=== PATIENT | male | born 1990 | race Caucasian/White ===

== ENCOUNTER → 2017-11-21 09:18 | Outpatient (CLI) | payer OTHER, MEDICAID, SELFPAY ==
[2017-11-21 11:15] LABS: Alanine Aminotransferase 221 IU/L (21-72); Albumin 4.5 g/dL (3.5-5.0); Albumin Globulin Ratio 1.4 (1.0-2.8); Alkaline Phosphatase 53 U/L (38-126); Aspartate Aminotransferase 133 IU/L (17-59); Bilirubin Total 0.5 mg/dL (0.2-1.3); Bilirubin Unconjugated 0.2 mg/dL (0.0-1.1); Cholesterol 175 mg/dL (140-199); Globulin 3.2 g/dL (1.7-4.1); HDL Cholesterol 44 mg/dL (40-60); HEMOLYSIS < 15 (0-50); LDL Cholesterol Calculated 93 mg/dL (<100); Total Protein 7.7 g/dL (6.3-8.2); Triglycerides 188 mg/dL (35-150)
== END ==
PROVIDERS: PCP Physician Assistant; Visit Provider Physician Assistant
DX: E78.1 Pure hyperglyceridemia (principal); F10.20 Alcohol dependence, uncomplicated; F10.929 Alcohol use, unspecified with intoxication, unspecified
CPT/HCPCS: 36415; 80061; 80076

== ENCOUNTER → 2018-06-25 09:55 | Outpatient (CLI) | payer OTHER, MEDICAID, SELFPAY ==
[2018-06-25 13:13] LABS: Alanine Aminotransferase 156 IU/L (21-72); Albumin 4.9 g/dL (3.5-5.0); Albumin Globulin Ratio 1.4 (1.0-2.8); Alkaline Phosphatase 55 U/L (38-126); Aspartate Aminotransferase 67 IU/L (17-59); BUN Creatinine Ratio 15.6 (6-22); Bilirubin Total 0.7 mg/dL (0.2-1.3); Blood Urea Nitrogen 14 mg/dL (9-20); Calcium 9.8 mg/dL (8.4-10.2); Carbon Dioxide 29 mmol/L (22-32); Chloride 99 mmol/L (98-107); Cholesterol 174 mg/dL (140-199); Estimated Glomerular Filt Rate > 60.0 mL/min (>60); Globulin 3.6 g/dL (1.7-4.1); Glucose 85 mg/dL (70-100); HDL Cholesterol 38 mg/dL (40-60); HEMOLYSIS < 15 (0-50); LDL Cholesterol Calculated 97 mg/dL (<100); Potassium 4.3 mmol/L (3.4-5.1); Sodium 139 mmol/L (137-145); Total Protein 8.5 g/dL (6.3-8.2); Triglycerides 195 mg/dL (35-150)
== END ==
PROVIDERS: PCP Physician Assistant; Visit Provider Physician Assistant
DX: E78.5 Hyperlipidemia, unspecified (principal); I10 Essential (primary) hypertension; R74.8 Abnormal levels of other serum enzymes
CPT/HCPCS: 36415; 80053; 80061

== ENCOUNTER → 2018-12-02 15:06 | Outpatient (CLI) | payer OTHER, MEDICAID, SELFPAY ==
[2018-12-02 17:25] LABS: Alanine Aminotransferase 96 IU/L (21-72); Albumin 4.9 g/dL (3.5-5.0); Albumin Globulin Ratio 1.3 (1.0-2.8); Alkaline Phosphatase 65 U/L (38-126); Aspartate Aminotransferase 53 IU/L (17-59); BUN Creatinine Ratio 17.8 (6-22); Bilirubin Total 0.8 mg/dL (0.2-1.3); Blood Urea Nitrogen 16 mg/dL (9-20); Calcium 9.7 mg/dL (8.4-10.2); Carbon Dioxide 26 mmol/L (22-32); Chloride 101 mmol/L (98-107); Estimated Glomerular Filt Rate > 60.0 mL/min (>60); Globulin 3.8 g/dL (1.7-4.1); Glucose 79 mg/dL (70-100); HEMOLYSIS < 15 (0-50); Potassium 4.3 mmol/L (3.4-5.1); Sodium 140 mmol/L (137-145); Total Protein 8.7 g/dL (6.3-8.2)
[2018-12-02 17:33] LABS: Microalbumi Creatinin Ratio Ur 6.4 ug/mg CR (<30)
== END ==
PROVIDERS: PCP Physician Assistant; Visit Provider Physician Assistant
DX: I10 Essential (primary) hypertension (principal); R74.8 Abnormal levels of other serum enzymes
CPT/HCPCS: 36415; 80053; 82043; 82570

== ENCOUNTER → 2019-03-03 15:32 | Outpatient (CLI) | payer OTHER, MEDICAID, SELFPAY ==
--- NOTE | 2019-03-03 15:34 | DI.RAD.S_ITS ---
PROCEDURE: XR SACRUM COCCYX MIN 2V INDICATIONS: sacral pain - bilateral morning stiffness TECHNIQUE: 3 views of the sacrum and coccyx acquired. COMPARISON: None. FINDINGS: Bones: No fractures or dislocations. No suspicious bony lesions. Soft tissues: Visualized bowel gas pattern is normal. No suspicious soft tissue densities. IMPRESSION: Negative examination as above Dictated by: Bruce Pepe M.D. on 03/03/2019 at 17:19 Approved by: Bruce Pepe M.D. on 03/03/2019 at 17:21
--- NOTE | 2019-03-03 15:34 | DI.RAD.S_ITS ---
PROCEDURE: XR LUMBAR SPINE 2-3V INDICATIONS: Low back pain TECHNIQUE: 3 views of the lumbar spine were acquired. COMPARISON: None. FINDINGS: Bones: No fracture or focal osseous destruction. Straightening of the normal lordotic curvature. No definite disc space narrowing. Mild lower lumbar facet disease. Soft tissues: Overlying bowel gas pattern is normal. No suspicious soft tissue calcifications. IMPRESSION: Mild lower lumbar facet disease Dictated by: Bruce Pepe M.D. on 03/03/2019 at 17:18 Approved by: Bruce Pepe M.D. on 03/03/2019 at 17:19
== END ==
PROVIDERS: PCP Physician Assistant; Visit Provider Physician Assistant
DX: M54.5 Low back pain (principal); M53.3 Sacrococcygeal disorders, not elsewhere classified
CPT/HCPCS: 72100; 72220

== ENCOUNTER → 2019-03-12 11:43 | Outpatient (CLI) | payer OTHER, MEDICAID, SELFPAY ==
[2019-03-12 13:41] LABS: Alanine Aminotransferase 82 IU/L (<50); Albumin 4.8 g/dL (3.5-5.0); Albumin Globulin Ratio 1.5 (1.0-2.8); Alkaline Phosphatase 61 U/L (38-126); Aspartate Aminotransferase 43 IU/L (17-59); Bilirubin Total 0.9 mg/dL (0.2-1.3); Bilirubin Unconjugated 0.7 mg/dL (0.0-1.1); Globulin 3.3 g/dL (1.7-4.1); HEMOLYSIS < 15 (0-50); Total Protein 8.1 g/dL (6.3-8.2)
== END ==
PROVIDERS: PCP Physician Assistant; Visit Provider Physician Assistant
DX: R74.8 Abnormal levels of other serum enzymes (principal); R77.8 Other specified abnormalities of plasma proteins
CPT/HCPCS: 36415; 80076

== ENCOUNTER → 2020-05-11 10:26 | Outpatient (CLI) | payer OTHER, MEDICAID, SELFPAY ==
--- NOTE | 2020-05-11 10:29 | DI.RAD.S_ITS ---
PROCEDURE: XR RIBS LT MIN 2V W CXR1V INDICATIONS: left rib pain TECHNIQUE: 2 views of the left ribs were acquired, along with a single view chest. COMPARISON: None. FINDINGS: Surgical changes and devices: None. Bones and chest wall: No fractures or dislocations. No suspicious bony lesions. Overlying soft tissues appear unremarkable. Lungs and pleura: No pleural effusions or pneumothorax. Lungs appear clear. Mediastinum: Mediastinal contours appear normal. Heart size is normal. IMPRESSION: No displaced rib fracture. No acute cardiopulmonary disease process. Dictated by: Tia Jacobsen MD, PhD on 05/11/2020 at 17:11 Approved by: Tia Jacobsen MD, PhD on 05/11/2020 at 17:12
[2020-05-11 12:26] LABS: Alanine Aminotransferase 46 IU/L (<50); Albumin 4.9 g/dL (3.5-5.0); Albumin Globulin Ratio 1.3 (1.0-2.8); Alkaline Phosphatase 54 U/L (38-126); Aspartate Aminotransferase 34 IU/L (17-59); BUN Creatinine Ratio 15.1 (6-22); Bilirubin Total 0.6 mg/dL (0.2-1.3); Blood Urea Nitrogen 16 mg/dL (9-20); Calcium 9.7 mg/dL (8.4-10.2); Carbon Dioxide 30 mmol/L (22-32); Chloride 103 mmol/L (98-107); Estimated Glomerular Filt Rate > 60.0 mL/min (>60); Globulin 3.9 g/dL (1.7-4.1); Glucose 73 mg/dL (70-100); HEMOLYSIS 29 (0-50); Potassium 4.2 mmol/L (3.4-5.1); Sodium 140 mmol/L (137-145); Total Protein 8.8 g/dL (6.3-8.2)
== END ==
PROVIDERS: PCP Family Medicine; Referring Provider Registered Nurse; Visit Provider Registered Nurse
DX: R07.81 Pleurodynia (principal); R74.8 Abnormal levels of other serum enzymes
CPT/HCPCS: 36415; 71101; 80053

== ENCOUNTER → 2020-06-16 15:48 | Outpatient (CLI) | payer OTHER, MEDICAID, SELFPAY ==
[2020-06-16 16:11] LABS: COVID19 -Nasal RAPID Negative (Negative)
== END ==
PROVIDERS: PCP Family Medicine; Visit Provider Nurse Practitioner Family
DX: Z20.822 Contact with and (suspected) exposure to COVID-19 (principal)
CPT/HCPCS: 87635

== ENCOUNTER → 2020-09-09 10:28 | Outpatient (CLI) | payer OTHER, MEDICAID, SELFPAY | PROVIDERS: PCP Family Medicine; Visit Provider Physician Assistant | DX: J02.9 Acute pharyngitis, unspecified (principal) | CPT/HCPCS: 87070; 87077; 87147 ==

== ENCOUNTER → 2021-05-18 08:33 | Outpatient (CLI) | payer OTHER, MEDICAID, SELFPAY ==
[2021-05-18 09:39] LABS: Add Manual Diff / Slide Review NO; Basophils Absolute Auto 0 /uL (0-100); Basophils Percent Auto 0.5 % (0-2); Eosinophils Absolute Auto 100 /uL (0-450); Eosinophils Percent Auto 1.1 % (2-4); Hematocrit 43.4 % (41-53); Hemoglobin 14.5 g/dL (13.5-17.5); Lymphocytes Absolute Auto 1700 /uL (1100-4500); Lymphocytes Percent Auto 32.7 % (25-40); Mean Corpuscular HGB Conc 33.3 % (30-36); Mean Corpuscular Hemoglobin 30.1 PG (26-34); Mean Corpuscular Volume 90.3 fL (80-100); Monocytes Absolute Auto 400 /uL (0-900); Neutrophils Absolute Auto 2900 /uL (1500-7000); Neutrophils Percent Auto 57.7 % (50-75); Platelet Count 297 X10^3/uL (150-400); White Blood Cell Count 5.1 X10^3/uL (4.5-11.0)
[2021-05-18 11:16] LABS: Alanine Aminotransferase 35 IU/L (<50); Albumin Globulin Ratio 1.4 (1.0-2.8); Alkaline Phosphatase 56 U/L (38-126); Aspartate Aminotransferase 30 IU/L (17-59); BUN Creatinine Ratio 14.7 (6-22); Bilirubin Total 0.7 mg/dL (0.2-1.3); Blood Urea Nitrogen 16 mg/dL (9-20); Calcium 9.8 mg/dL (8.4-10.2); Carbon Dioxide 28 mmol/L (22-32); Chloride 102 mmol/L (98-107); Cholesterol 205 mg/dL (140-199); Estimated Glomerular Filt Rate > 60.0 mL/min (>60); Globulin 3.6 g/dL (1.7-4.1); Glucose 120 mg/dL (70-100); HDL Cholesterol 42 mg/dL (40-60); HEMOLYSIS < 15 (0-50); LDL Cholesterol Calculated 136 mg/dL (<100); Sodium 139 mmol/L (137-145); Total Protein 8.6 g/dL (6.3-8.2); Triglycerides 136 mg/dL (35-150)
[2021-05-22 16:17] LABS: Testosterone Free 7.92 ng/dL (5.00-21.00); Testosterone Total 377.1 ng/dL (264.0-916.0)
== END ==
PROVIDERS: PCP Family Medicine; Referring Provider Family Medicine; Visit Provider Family Medicine
DX: I10 Essential (primary) hypertension (principal); R53.83 Other fatigue; N52.9 Male erectile dysfunction, unspecified
CPT/HCPCS: 36415; 80053; 80061; 84402; 84403; 85025

== ENCOUNTER 2021-08-16 17:07 | Emergency (ER) | payer OTHER, MEDICAID, SELFPAY ==
[2021-08-16] VITALS (7 sets, daily range): BP systolic 108–125; BP diastolic 59–67; PULSE 83–104; RESP 15–27; TEMP 37; O2SAT 96–100
--- NOTE | 2021-08-16 17:16 | DI.RAD.S_ITS ---
PROCEDURE: XR CHEST 1V INDICATIONS: suspected sepsis TECHNIQUE: One view of the chest was acquired. COMPARISON: None. FINDINGS: Surgical changes and devices: None. Lungs and pleura: Lungs are clear. No pleural effusions or pneumothorax. Mediastinum: Mediastinal contours appear normal. Heart size is normal. Bones and chest wall: No suspicious bony lesions. Overlying soft tissues appear unremarkable. IMPRESSION: No evidence acute pulmonary process. Dictated by: Baljit Mcgregor M.D. on 08/16/2021 at 17:46 Approved by: Baljit Mcgregor M.D. on 08/16/2021 at 17:46
[2021-08-16] MEDS: SODIUM CHLORIDE 0.9% 1,000 ML 1000 ML IV (17:37)
[2021-08-16 17:58] LABS: Add Manual Diff / Slide Review NO; Basophils Absolute Auto 0 /uL (0-100); Basophils Percent Auto 0.4 % (0-2); Eosinophils Absolute Auto 0 /uL (0-450); Eosinophils Percent Auto 0.1 % (2-4); Hematocrit 39.9 % (41-53); Lymphocytes Absolute Auto 600 /uL (1100-4500); Lymphocytes Percent Auto 10.1 % (25-40); Mean Corpuscular Hemoglobin 30.5 PG (26-34); Mean Corpuscular Volume 87.2 fL (80-100); Monocytes Absolute Auto 700 /uL (0-900); Monocytes Percent Auto 11.9 % (3-14); Neutrophils Absolute Auto 4400 /uL (1500-7000); Neutrophils Percent Auto 77.5 % (50-75); Platelet Count 267 X10^3/uL (150-400); Red Blood Cell Count 4.57 X10^6/uL (4.5-5.9); Red Cell Distribution Width 12.9 % (11.6-14.8); White Blood Cell Count 5.7 X10^3/uL (4.5-11.0)
[2021-08-16 18:04] LABS: Alanine Aminotransferase 78 IU/L (<50); Albumin Globulin Ratio 1.4 (1.0-2.8); Alkaline Phosphatase 52 U/L (38-126); Aspartate Aminotransferase 41 IU/L (17-59); BUN Creatinine Ratio 12.9 (6-22); Bilirubin Total 1.1 mg/dL (0.2-1.3); Blood Urea Nitrogen 13 mg/dL (9-20); Carbon Dioxide 25 mmol/L (22-32); Chloride 100 mmol/L (98-107); Estimated Glomerular Filt Rate > 60 mL/min (>60); Globulin 3.7 g/dL (1.7-4.1); Glucose 95 mg/dL (70-100); HEMOLYSIS 16 (0-50); Lipase 65 U/L (23-300); Potassium 3.7 mmol/L (3.4-5.1); Sodium 139 mmol/L (137-145); Total Protein 8.7 g/dL (6.3-8.2)
[2021-08-16 18:05] LABS: Lactate (Lactic Acid) 0.8 mmol/L (0.7-2.1)
[2021-08-16 18:20] LABS: Procalcitonin 0.08 ng/mL (<0.5)
--- NOTE | 2021-08-16 18:29 | ED.FEVER ---
HPI - Fever <Mike Peace PA-C - Last Filed: 08/16/21 19:50> General Chief Complaint: Fever Stated Complaint: fever, back pain Time Seen by Provider: 08/16/21 17:20 Source: patient Mode of arrival: Ambulatory History of Present Illness HPI Narrative: 31-year-old male with chronic back pain, essential hypertension presents to the ED with 1 day of fever and 2 days of lower back pain. Patient states that he had acute onset of lower back pain yesterday, cannot recall any specific event or trauma that might have caused it. States that the pain is in his lower back on either side, but not in the midline. Pain is aggravated by movement. Patient also reports acute onset fever this morning with chills. Patient denies cough, however endorses a slightly runny nose. Denies nausea, vomiting, abdominal pain, diarrhea, lightheadedness, dizziness, syncope. Patient is not vaccinated for COVID-19. Patient denies dysuria, urinary hesitancy, urinary incontinence, bowel incontinence, saddle paresthesias. Patient denies IV drug use. Related Data Previous Rx's Medication Instructions Recorded hydrochlorothiazide 25 mg tablet 25 mg PO DAILY #90 tab 06/28/21 tizanidine 4 mg tablet See Rx Instructions .ROUTE 08/02/21 .COMPLEX #60 tab fluoxetine 10 mg tablet 10 mg PO DAILY #90 tab 08/15/21 Review of Systems <Mike Peace PA-C - Last Filed: 08/16/21 19:50> Review of Systems ROS Unobtainable: All systems reviewed & are unremarkable except as noted in HPI and below Constitutional Constitutional: Reports chills, Reports fatigue, Reports fever(s), Denies frequent falls, Denies lethargy and Denies weakness Eyes Eyes: Denies change in vision, Denies eye discharge, Denies irritation and Denies loss of vision ENT Ears, Nose, Mouth, and Throat: Denies change in voice, Denies dizziness, Reports nasal congestion, Reports nasal discharge, Denies neck pain, Denies sore throat and Denies throat swelling Cardiovascular Cardiovascular: Denies chest pain, Denies irregular heart rhythm, Denies lightheadedness, Denies palpitations, Denies dyspnea, Denies dyspnea on exertion and Denies orthopnea Respiratory Respiratory: Denies cough, Denies dyspnea, Denies dyspnea on exertion and Denies wheezing Gastrointestinal Gastrointestinal: Denies abdominal pain, Denies change in bowel habits, Denies diarrhea, Denies nausea and Denies vomiting Genitourinary Genitourinary: Denies hematuria, Denies flank pain, Denies urinary incontinence and Denies urinary urgency Musculoskeletal Musculoskeletal: Reports back pain, Denies muscle weakness, Denies neck pain, Denies numbness and Denies tingling Integumentary/Breasts Skin/Breast: Denies pruritus, Denies erythema, Denies rash and Denies wounds Neurologic Neurologic: Denies behavioral changes, Denies confusion, Denies dizziness, Denies frequent falls, Denies loss of vision, Denies numbness, Denies tingling and Denies weakness Psychiatric Psychiatric: Denies anxiety, Denies behavioral changes, Denies confusion, Denies depression, Denies homicidal ideation and Denies suicidal ideation Endocrine Endocrine: Reports fatigue, Denies flushing and Denies palpitations Hematologic/Lymphatic Hematologic/Lymphatic: Denies easy bruising Allergic/Immunologic Allergic/Immunologic: Denies urticaria, Denies throat swelling and Denies wheezing Patient History <Mike Peace PA-C - Last Filed: 08/16/21 19:50> Medical History Acute sinusitis Alcoholism /alcohol abuse Chronic thoracic back pain Diarrhea Drug allergy Ear pain, left Erectile dysfunction Fatigue Family History Father Hypertension Diabetes mellitus Mother No problems noted. Social History Smoking Status: Current every day smoker quit status: considering quitting second hand exposure: No alcohol intake: current substance use type: does not use Smoking Status: Current every day smoker Exam <Mike Peace PA-C - Last Filed: 08/16/21 19:50> Narrative Exam Narrative: Const General:?cooperative, healthy appearing and comfortable [facility] Head:?normal to inspection Ears:?hearing grossly normal bilaterally Nose:?external nose normal Face and sinus:?normal facial exam and sinuses nontender Mouth:?oral mucosae normal Throat:?posterior oropharynx normal Eyes General:?appearance normal, both eyes and all related structures Neck Neck:?normal visual inspection and no lymphadenopathy noted Resp Effort & Inspection:?normal respiratory effort Auscultation:?clear to auscultation bilaterally Cardio Rate:?regular rate Rhythm:?regular rhythm Musculoskeletal Negative SLR, negative cross SLR. No midline tenderness to palpation. Full range of motion. Neurovascularly intact. Gait normal. No rashes. Negative Kernig, negative Brudzinski. No neck stiffness Neuro General:?patient alert, patient awake and patient oriented x3 Initial Vital Signs Initial Vital Signs: Vital Signs Temperature 98.6 F 08/16/21 17:10 Pulse Rate 104 H 08/16/21 17:10 Respiratory Rate 22 08/16/21 17:10 Blood Pressure 119/67 08/16/21 17:10 Pulse Oximetry 97 08/16/21 17:10 <Arvin Ibarra DO - Last Filed: 08/17/21 17:08> Initial Vital Signs Initial Vital Signs: Vital Signs Temperature 98.6 F 08/16/21 17:10 Pulse Rate 104 H 08/16/21 17:10 Respiratory Rate 08/16/21 17:10 Blood Pressure 119/67 08/16/21 17:10 Pulse Oximetry 97 08/16/21 17:10 Course <Mike Peace PA-C - Last Filed: 08/16/21 19:50> Orders Ordered: Discontinued Medications Cyclobenzaprine HCl (Cyclobenzaprine 10 Mg Tablet) 10 mg PO NOW ONE Stop: 08/16/21 18:27 Last Admin: 08/16/21 18:44 Dose: 10 mg Documented by: JAYNE Sodium Chloride (Normal Saline 0.9%) 1,000 mls @ 1,000 mls/hr IV BOLUS ONE Stop: 08/16/21 18:15 Last Infusion: 08/16/21 19:26 Dose: 0 mls/hr Documented by: Admin: 08/16/21 17:37 Dose: 1,000 mls/hr Documented by: JAYNE Ketorolac Tromethamine (Ketorolac 30 Mg/Ml Vial) 15 mg IV NOW ONE Stop: 08/16/21 18:27 Last Admin: 08/16/21 18:44 Dose: 15 mg Documented by: JAYNE Vital Signs Vital signs: Vital Signs - 8 hr 08/16/21 17:10 08/16/21 17:48 08/16/21 18:00 Temperature 98.6 F Pulse Rate 104 H 89 87 Respiratory Rate 22 27 H 17 Blood Pressure 119/67 125/62 Pulse Oximetry 97 96 97 08/16/21 18:30 08/16/21 19:00 Temperature Pulse Rate 83 96 H Respiratory Rate 25 H 18 Blood Pressure 112/59 L 108/64 Pulse Oximetry 100 99 <Arvin Ibarra DO - Last Filed: 08/17/21 17:08> Orders Ordered: Discontinued Medications Cyclobenzaprine HCl (Cyclobenzaprine 10 Mg Tablet) 10 mg PO NOW ONE Stop: 08/16/21 18:27 Last Admin: 08/16/21 18:44 Dose: 10 mg Documented by: JAYNE Sodium Chloride (Normal Saline 0.9%) 1,000 mls @ 1,000 mls/hr IV BOLUS ONE Stop: 08/16/21 18:15 Last Infusion: 08/16/21 19:26 Dose: 0 mls/hr Documented by: Admin: 08/16/21 17:37 Dose: 1,000 mls/hr Documented by: JAYNE Ketorolac Tromethamine (Ketorolac 30 Mg/Ml Vial) 15 mg IV NOW ONE Stop: 08/16/21 18:27 Last Admin: 08/16/21 18:44 Dose: 15 mg Documented by: JAYNE Vital Signs Vital signs: Vital Signs - 8 hr 08/16/21 17:10 08/16/21 17:48 08/16/21 18:00 Temperature 98.6 F Pulse Rate 104 H 89 87 Respiratory Rate 22 27 H 17 Blood Pressure 119/67 125/62 Pulse Oximetry 97 96 97 08/16/21 18:30 08/16/21 19:00 Temperature Pulse Rate 83 96 H Respiratory Rate 25 H 18 Blood Pressure 112/59 L 108/64 Pulse Oximetry 100 99 MDM - Fever <Mike Peace PA-C - Last Filed: 08/16/21 19:50> Lab Data Lab results narrative: Labs within normal limits. COVID-19 positive. Result diagrams: 08/16/21 17:35 08/16/21 17:35 Labs: Lab Results 08/16/21 08/16/21 08/16/21 Range/Units 17:35 17:35 17:35 WBC 5.7 (4.5-11.0) X10^3/uL RBC 4.57 (4.5-5.9) X10^6/uL Hgb 14.0 (13.5-17.5) g/dL Hct 39.9 L (41-53) % MCV 87.2 (80-100) fL MCH 30.5 (26-34) PG MCHC 35.0 (30-36) % RDW 12.9 (11.6-14.8) % Plt Count 267 (150-400) X10^3/uL Neut % (Auto) 77.5 H (50-75) % Lymph % (Auto) 10.1 L (25-40) % [place] % (Auto) 11.9 (3-14) % Eos % (Auto) 0.1 L (2-4) % Baso % (Auto) 0.4 (0-2) % Neut # (Auto) 4400 (7524-1838) /uL Lymph # (Auto) 600 L (2308-0051) /uL [place] # (Auto) 700 (0-900) /uL Eos # (Auto) 0 (0-450) /uL Baso # (Auto) 0 (0-100) /uL Sodium 139 (137-145) mmol/L Potassium 3.7 (3.4-5.1) mmol/L Chloride 100 (98-107) mmol/L Carbon Dioxide 25 (22-32) mmol/L BUN 13 (9-20) mg/dL Creatinine 1.01 (0.66-1.25) mg/dL Estimated GFR > 60 (>60) mL/min BUN/Creatinine Ratio 12.9 (6-22) Glucose 95 (70-100) mg/dL Lactate 0.8 (0.7-2.1) mmol/L Calcium 9.0 (8.4-10.2) mg/dL Total Bilirubin 1.1 (0.2-1.3) mg/dL AST 41 (17-59) IU/L ALT 78 H (<50) IU/L Alkaline Phosphatase 52 (38-126) U/L Total Protein 8.7 H (6.3-8.2) g/dL Albumin 5.0 (3.5-5.0) g/dL Globulin 3.7 (1.7-4.1) g/dL Albumin/Globulin Ratio 1.4 (1.0-2.8) Lipase 65 (23-300) U/L Procalcitonin 0.08 (<0.5) ng/mL SARS-CoV-2 (PCR) (Negative) Influenza A (RT-PCR) (NEGATIVE) Influenza B (RT-PCR) (NEGATIVE) RSV (PCR) (Negative) 08/16/21 Range/Units 18:37 WBC (4.5-11.0) X10^3/uL RBC (4.5-5.9) X10^6/uL Hgb (13.5-17.5) g/dL Hct (41-53) % MCV (80-100) fL MCH (26-34) PG MCHC (30-36) % RDW (11.6-14.8) % Plt Count (150-400) X10^3/uL Neut % (Auto) (50-75) % Lymph % (Auto) (25-40) % [place] % (Auto) (3-14) % Eos % (Auto) (2-4) % Baso % (Auto) (0-2) % Neut # (Auto) (7197-3723) /uL Lymph # (Auto) (0842-6448) /uL [place] # (Auto) (0-900) /uL Eos # (Auto) (0-450) /uL Baso # (Auto) (0-100) /uL Sodium (137-145) mmol/L Potassium (3.4-5.1) mmol/L Chloride (98-107) mmol/L Carbon Dioxide (22-32) mmol/L BUN (9-20) mg/dL Creatinine (0.66-1.25) mg/dL Estimated GFR (>60) mL/min BUN/Creatinine Ratio (6-22) Glucose (70-100) mg/dL Lactate (0.7-2.1) mmol/L Calcium (8.4-10.2) mg/dL Total Bilirubin (0.2-1.3) mg/dL AST (17-59) IU/L ALT (<50) IU/L Alkaline Phosphatase (38-126) U/L Total Protein (6.3-8.2) g/dL Albumin (3.5-5.0) g/dL Globulin (1.7-4.1) g/dL Albumin/Globulin Ratio (1.0-2.8) Lipase (23-300) U/L Procalcitonin (<0.5) ng/mL SARS-CoV-2 (PCR) Positive H (Negative) Influenza A (RT-PCR) Flu a negative (NEGATIVE) Influenza B (RT-PCR) Flu b negative (NEGATIVE) RSV (PCR) Negative (Negative) Imaging Data Chest x-ray: Radiologist's Impression: PROCEDURE:? XR CHEST 1V ? INDICATIONS:? suspected sepsis ? TECHNIQUE:? One view of the chest was acquired.? ? COMPARISON:? None. ? FINDINGS:? ? Surgical changes and devices:? None.? ? Lungs and pleura:? Lungs are clear.? No pleural effusions or pneumothorax.? ? Mediastinum:? Mediastinal contours appear normal.? Heart size is normal.? ? Bones and chest wall:? No suspicious bony lesions.? Overlying soft tissues appear unremarkable.? ? IMPRESSION:? No evidence acute pulmonary process. ? ? ? Dictated by: Baljit Mcgregor M.D. on 08/16/2021 at 17:46 ? ? Approved by: Baljit Mcgregor M.D. on 08/16/2021 at 17:46 ? MDM Narrative Medical decision making narrative: 31-year-old male with chronic back pain, essential hypertension presents to the ED with 1 day of fever and 2 days of lower back pain. Concern for COVID-19 infection versus other viral syndrome versus musculoskeletal sprain/strain. Unlikely epidural abscess, given no IV drug use, history. No red flag symptoms for cauda equina. Patient is tachycardic and tachypneic on arrival, will run labs to rule out sepsis, reassess. Will test for COVID 19, flu. Patient tested positive for COVID-19, negative for flu. Recommend supportive care. ED return precautions discussed with patient. Patient verbalized understanding. <Arvin Ibarra, DO - Last Filed: 08/17/21 17:08> Lab Data Labs: Lab Results 08/16/21 08/16/21 08/16/21 Range/Units 17:35 17:35 17:35 WBC 5.7 (4.5-11.0) X10^3/uL RBC 4.57 (4.5-5.9) X10^6/uL Hgb 14.0 (13.5-17.5) g/dL Hct 39.9 L (41-53) % MCV 87.2 (80-100) fL MCH 30.5 (26-34) PG MCHC 35.0 (30-36) % RDW 12.9 (11.6-14.8) % Plt Count 267 (150-400) X10^3/uL Neut % (Auto) 77.5 H (50-75) % Lymph % (Auto) 10.1 L (25-40) % [place] % (Auto) 11.9 (3-14) % Eos % (Auto) 0.1 L (2-4) % Baso % (Auto) 0.4 (0-2) % Neut # (Auto) 4400 (1550-9275) /uL Lymph # (Auto) 600 L (6760-5634) /uL [place] # (Auto) 700 (0-900) /uL Eos # (Auto) 0 (0-450) /uL Baso # (Auto) 0 (0-100) /uL Sodium 139 (137-145) mmol/L Potassium 3.7 (3.4-5.1) mmol/L Chloride 100 (98-107) mmol/L Carbon Dioxide 25 (22-32) mmol/L BUN 13 (9-20) mg/dL Creatinine 1.01 (0.66-1.25) mg/dL Estimated GFR > 60 (>60) mL/min BUN/Creatinine Ratio 12.9 (6-22) Glucose 95 (70-100) mg/dL Lactate 0.8 (0.7-2.1) mmol/L Calcium 9.0 (8.4-10.2) mg/dL Total Bilirubin 1.1 (0.2-1.3) mg/dL AST 41 (17-59) IU/L ALT 78 H (<50) IU/L Alkaline Phosphatase 52 (38-126) U/L Total Protein 8.7 H (6.3-8.2) g/dL Albumin 5.0 (3.5-5.0) g/dL Globulin 3.7 (1.7-4.1) g/dL Albumin/Globulin Ratio 1.4 (1.0-2.8) Lipase 65 (23-300) U/L Procalcitonin 0.08 (<0.5) ng/mL SARS-CoV-2 (PCR) (Negative) Influenza A (RT-PCR) (NEGATIVE) Influenza B (RT-PCR) (NEGATIVE) RSV (PCR) (Negative) 08/16/21 Range/Units 18:37 WBC (4.5-11.0) X10^3/uL RBC (4.5-5.9) X10^6/uL Hgb (13.5-17.5) g/dL Hct (41-53) % MCV (80-100) fL MCH (26-34) PG MCHC (30-36) % RDW (11.6-14.8) % Plt Count (150-400) X10^3/uL Neut % (Auto) (50-75) % Lymph % (Auto) (25-40) % [place] % (Auto) (3-14) % Eos % (Auto) (2-4) % Baso % (Auto) (0-2) % Neut # (Auto) (8986-0350) /uL Lymph # (Auto) (7642-4186) /uL [place] # (Auto) (0-900) /uL Eos # (Auto) (0-450) /uL Baso # (Auto) (0-100) /uL Sodium (137-145) mmol/L Potassium (3.4-5.1) mmol/L Chloride (98-107) mmol/L Carbon Dioxide (22-32) mmol/L BUN (9-20) mg/dL Creatinine (0.66-1.25) mg/dL Estimated GFR (>60) mL/min BUN/Creatinine Ratio (6-22) Glucose (70-100) mg/dL Lactate (0.7-2.1) mmol/L Calcium (8.4-10.2) mg/dL Total Bilirubin (0.2-1.3) mg/dL AST (17-59) IU/L ALT (<50) IU/L Alkaline Phosphatase (38-126) U/L Total Protein (6.3-8.2) g/dL Albumin (3.5-5.0) g/dL Globulin (1.7-4.1) g/dL Albumin/Globulin Ratio (1.0-2.8) Lipase (23-300) U/L Procalcitonin (<0.5) ng/mL SARS-CoV-2 (PCR) Positive H (Negative) Influenza A (RT-PCR) Flu a negative (NEGATIVE) Influenza B (RT-PCR) Flu b negative (NEGATIVE) RSV (PCR) Negative (Negative) Discharge Plan Departure Patient Disposition: Home Clinical Impression: COVID-19 Instructions: DI for COVID-19 (Suspected or Confirmed ) Activity Restrictions/Additional Instructions: You were evaluated in the ED today for a fever and lower back pain. Your labs were normal. You tested positive for COVID-19, which is likely the cause of your fever. Your lower back pain is likely a musculoskeletal sprain/strain. Your back pain improved with Flexeril. You may continue to take muscle relaxants, ibuprofen/Tylenol for your symptoms. Return to the ED if you have worsening symptoms, chest pain, shortness of breath. Prescriptions: No Action tizanidine 4 mg tablet See Rx Instructions .ROUTE .COMPLEX Qty: 60 5RF Dose Instruction: TAKE ONE OR TWO TABLETS BY MOUTH NIGHTLY AT BEDTIME NEEDED for muscle spasticity/spasm Rx Instructions: TAKE ONE OR TWO TABLETS BY MOUTH NIGHTLY AT BEDTIME NEEDED for muscle spasticity/spasm fluoxetine 10 mg tablet 10 mg PO DAILY Qty: 90 0RF hydrochlorothiazide 25 mg tablet 25 mg PO DAILY Qty: 90 3RF Referrals: Hay Elise DO [Primary Care Provider] - <Arvin Ibarra DO - Last Filed: 08/17/21 17:08> [facility] ED Attending Diogenesature Attestation: I was immediately available in the department for consultation. This documentation has been reviewed and I agree with assessment and plan. Supervised by Arvin Ibarra DO
[2021-08-16] MEDS: KETOROLAC 30 MG/ML VIAL 15 MG IV (18:44)
[2021-08-16] MEDS: CYCLOBENZAPRINE 10 MG TABLET PO (18:44)
--- NOTE | 2021-08-16 18:47 | PC.NURSE ---
Cleared by JENNIE Mckeon to eat
[2021-08-16 19:28] LABS: Influenza A - CEPHEID Flu A NEGATIVE (NEGATIVE); Influenza B - CEPHEID Flu B NEGATIVE (NEGATIVE); Respiratory Syncytial Virus Negative (Negative)
[2021-08-16 19:43] LABS: COVID-19 CEPHEID PCR (VTM/NP) POSITIVE (Negative)
== END 2021-08-16 19:51 | disposition home or self-care (01) ==
PROVIDERS: Emergency Medicine; Emergency Provider Student in an Organized Health Care Education/Training Program; PCP Family Medicine; Referring Provider Family Medicine
DX: U07.1 COVID-19 (principal); M54.50 Low back pain, unspecified
CPT/HCPCS: 0241U; 36415; 71045; 80053; 83605; 83690; 84145; 85025; 87040; 93005; 96374; 99284; J1885

== ENCOUNTER → 2022-01-12 13:00 | Outpatient (CLI) | payer OTHER, MEDICAID, SELFPAY | PROVIDERS: PCP Family Medicine; Visit Provider Nurse Practitioner Family | DX: N39.0 Urinary tract infection, site not specified (principal) | CPT/HCPCS: 81002; 87086 ==

== ENCOUNTER → 2022-05-16 11:01 | Outpatient (CLI) | payer OTHER, MEDICAID, SELFPAY ==
--- NOTE | 2022-05-16 11:02 | DI.RAD.S_ITS ---
PROCEDURE: XR LUMBAR SPINE MIN 4V INDICATIONS: pain TECHNIQUE: 5 views of the lumbar spine were acquired, including bilateral oblique views. COMPARISON: [facility], , XR LUMBAR SPINE 2-3V, 03/03/2019, 15:31. FINDINGS: Bones: 5 nonrib-bearing vertebrae are present. There is normal bony alignment. No vertebral body compression fractures. No suspicious bony lesions. Mild facet hypertrophy is seen in the lower lumbar spine. Soft tissues: Overlying bowel gas pattern is normal. No suspicious soft tissue calcifications. Oblique images: No pars defects. IMPRESSION: Mild facet hypertrophy at the lower lumbar spine. MRI of the lumbar spine could be performed for further evaluation if indicated clinically. Approved by: Joshua Ragland M.D. on 05/16/2022 at 13:23
== END ==
PROVIDERS: PCP Family Medicine; Referring Provider Family Medicine; Visit Provider Family Medicine
DX: M54.42 Lumbago with sciatica, left side (principal)
CPT/HCPCS: 72110

== ENCOUNTER 2022-07-05 10:30 | Outpatient (RCR) | payer OTHER, MEDICAID, SELFPAY ==
--- NOTE | 2022-06-08 17:23 | PT.OIE ---
Current Diagnoses Other chronic pain (06/08/22) Pain in right shoulder (06/08/22) Pain in left shoulder (06/08/22) Lumbago with sciatica, left side (06/08/22) Low back pain, unspecified (06/08/22) Pain in thoracic spine (06/08/22) Segmental and somatic dysfunction of lumbar region (06/08/22) Segmental and somatic dysfunction of sacral region (06/08/22) Segmental and somatic dysfunction of pelvic region (06/08/22) Segmental and somatic dysfunction of lower extremity (06/08/22) Segmental and somatic dysfunction of abdomen and other regions (06/08/22) Abnormal posture (06/08/22) Weakness (06/08/22) Past Medical History (Last Updated 05/16/22 @ 11:04 by Naman Elise DO) Acute bacterial sinusitis Acute bilateral low back pain with left-sided sciatica Acute pain of both shoulders Acute sinusitis Alcoholism /alcohol abuse Bilateral acute otitis media Chronic thoracic back pain Diarrhea Drug allergy Ear pain, left Erectile dysfunction Fatigue Lumbar region somatic dysfunction Pelvic somatic dysfunction Sacral region somatic dysfunction Segmental and somatic dysfunction of abdomen and other regions Somatic dysfunction of lower extremity Visit Care Team Role Provider Type Naman Elise DO Attending Provider Physician Family Provider Primary Care Provider Referring Provider Specialty: Family Practice Address: [address] [place] [address], [facility] Email: Physical Therapy Initial Evaluation PT-OP-A Visit Information Start: 06/07/22 17:37 Freq: Status: Active Protocol: Document 06/08/22 15:19 [facility] (Rec: 06/08/22 17:17 [facility] [id number]) Out-Patient Physical Therapy Visit Information Visit Information Visit Type Initial Evaluation Visit Start Time 15:19 Visit Stop Time 16:16 Total Visit Minutes 57 Visit Number 1 Evaluation Information Evaluation Date 06/08/22 PT-OP-B Current Condition Start: 06/07/22 17:37 Freq: Status: Active Protocol: Document 06/08/22 15:19 [facility] (Rec: 06/08/22 17:17 [facility] [id number]) Current Condition History of Current Condition Onset Date 05/10/22 Current Complaints tomas LBP/buttock pain History of Current Condition Doing a lift , went for [place] at 390 felt and heard pop in low back, with resulting pain LB radiating into posterior left LE. States he had a friend videotaping and had poor form with rounded thoracic and lumbar spines. Has been getting better gradually with radiating pain decreasing to mostly just into buttocks now but pain persists. States he lifts weights 5-6 days per week, alternating different body parts does ice baths 2x/wk, warms up with high reps and low weight prior to his lifting routine. Also reports some mild discomfort with having BM since injury, and pain right anterior hip when moving in bed. Trying to do a little more stretching, had him do a few yoga poses. Patient also c/o bilateral shoulder pain mostly with lifting his arms out to the side and limited motion causing him to have to modify how he holds weight bar at his shoulders with moderate tightness pecs and decreased ER ROM and strength. States he has a high pain tolerance. Lifting routine: Sunday chest, arms chest, hips, Sunday legs. Prior Treatments and Tests x-ray negative,no further imaging. Future Testing and Treatments Planned none at this time. 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 Functional Limitations- Recreation/ has modified his weight Hobbies lifting, not currently doing lifts PT-OP-C Subjective Start: 06/07/22 17:37 Freq: Status: Active Protocol: Document 06/08/22 15:19 [facility] (Rec: 06/08/22 17:17 [facility] [id number]) Patient Questionnaires Oswestry Low Back Index Oswestry Score 20 OP-PT Pain Assessment Pain Assessment Grid Paper Pain Assessment Grid Completed Yes Location tomas buttocks Intensity 4 PT-OP-D Balance Start: 06/07/22 17:37 Freq: Status: Active Protocol: Document 06/08/22 15:19 [facility] (Rec: 06/08/22 17:17 [facility] [id number]) OP-PT Balance Assessment Standing Balance Standing Balance Comments SLS right 12 sec, left 7 sec Dye Fall Scale Copyright Permission PT-OP-F Manual Assessment Start: 06/07/22 17:37 Freq: Status: Active Protocol: Document 06/08/22 15:19 [facility] (Rec: 06/08/22 17:17 [facility] [id number]) Manual Assessments Soft Tissue Assessment Soft Tissue Mobility Assessment tightness bilateral lumbar spine PT-OP-G Mobility & Gait Start: 06/07/22 17:37 Freq: Status: Active Protocol: Document 06/08/22 15:19 [facility] (Rec: 06/08/22 17:17 [facility] [id number]) OP Gait Assessment Gait Gait Assistance Required: Independent Assistive Devices Assistive Device None PT-OP-H Neuro Start: 06/07/22 17:37 Freq: Status: Active Protocol: Document 06/08/22 15:19 [facility] (Rec: 06/08/22 17:17 [facility] [id number]) Sensation Evaluation Gross Sensation Gross Sensation Left LE Impaired Sensation Description Paresthesia PT-OP-J Posture/Palpation/Skin Start: 06/07/22 17:37 Freq: Status: Active Protocol: Document 06/08/22 15:19 [facility] (Rec: 06/08/22 17:17 [facility] [id number]) Posture Evaluation Position Standing Head/C-Spine Posture Forward Head T-Spine Posture Increased Kyphosis L-Spine Posture Flattened Scapula Posture (L) Protracted,(R) Protracted Arm Posture (L) Internally Rotated,(R) Internally Rotated Pelvis Posture Posterior Tilted Palpation Assessment Location tomas paraspinals Palpation Findings Soft Tissue Tightness,Muscle Guarding PT-OP-K Range of Motion Start: 06/07/22 17:37 Freq: Status: Active Protocol: Document 06/08/22 15:19 [facility] (Rec: 06/08/22 17:17 [facility] [id number]) Lumbar Spine Range of Motion Lumbar Spine Active Testing Position Standing Flexion 40 Extension 20 Rotation Left 35 Rotation Right 35 Lateral Flexion Left 30 Lateral Flexion Right 30 ROM Limitations Soft Tissue Tightness,Pain Comments with flexion pain and tightness left posterior thigh Hip Goniometric Range of Motion Hip ROM Limitations Hip ROM Limitations Soft Tissue Tightness Comments mod tightness left hip flexors , tomas hamstrings PT-OP-M Strength Start: 06/07/22 17:37 Freq: Status: Active Protocol: Document 06/08/22 15:19 [facility] (Rec: 06/08/22 17:17 [facility] [id number]) Trunk Strength Trunk Manual Muscle Testing Flexion 4 Good Extension 4 Good Core Stabilization decreased with seated march noted moderate trunk compensation Hip Strength Hip Manual Muscle Testing Left Flexion (L2) 4 Good Right Flexion (L2) 5 Normal Knee Strength Knee Manual Muscle Testing Left Flexion (S2) 4 Good Extension (L3) 4 Good Right Flexion (S2) 5 Normal Extension (L3) 5 Normal Ankle/Foot Strength Ankle and Foot Manual Muscle Testing Left Dorsiflexion (L4) 4+ Good+ Right Dorsiflexion (L4) 5 Normal Plantarflexion (S1) 5 Normal Toe Strength Toe Manual Muscle Testing Left Great Toe Extension 4 Good Right Great Toe Extension 5 Normal PT-OP-Q Treatments Start: 06/07/22 17:37 Freq: Status: Active Protocol: Document 06/08/22 15:19 [facility] (Rec: 06/08/22 17:17 [facility] [id number]) Self-Care/Home Management Treatment Education Patient Education Body Mechanics,Home Exercise Program,Pain Management, Posture,Safety Other Education issued written HO for HEP, discussed importance of core stabilization, correct posture and form for exercise and work activities. PT-OP-T Assessment and Plan Start: 06/07/22 17:37 Freq: Status: Active Protocol: Document 06/08/22 15:19 [facility] (Rec: 06/08/22 17:17 [facility] [id number]) Physical Therapy Assessment Rehab Potential Rehabilitation Potential Good Evaluation Complexity Number of Personal Factors/Comorbidities 1-2 Number of Body Systems Impaired 3 Clinical Presentation at Evaluation Evolving Impairments Impairments Activity Tolerance,Pain, Posture,Strength Goals Five Impairment bilateral shoulder pain, weakness, and tightness Mcc Goal (LTG) patient to be independent with HEP to address shoulder dysfunction and demonstrate ROM and strength WNL LTG Duration 08/08/22 Four Impairment impaired body mechanics with weight lifting contributing to injury Short Term Goal (STG) instruct patient in correct form for lifting, squats, and any other identified exercises with difficulty STG Duration 07/09/22 Mcc Goal (LTG) Patient to demonstrate good body mechanics for his weight lifting activities to protect his spine and allow him to return to all prior activities safely and without pain Three Impairment left LE weakness and impaired core stabilization Short Term Goal (STG) patient to be instructed in HEP for purposes of LE strengthening and core stabilization STG Duration 07/09/22 Refund Specialist Goal (LTG) Patient to be independent and compliant with HEP and dmeonstrate 5/5 muscle strength left LE and good core stabilization with ability to perform seated march without compensatory trunk movements for improved spinal stabiliztion and function LTG Duration 08/08/22 Two Impairment Oswestry disability index score 20% Refund Specialist Goal (LTG) Decrease ROSS score to no greater than 5% as measure of improved activity tolerance LTG Duration 08/08/22 One Impairment bilateral low back/buttock pain 4/10 on pain scale with radicular symptoms Mcc Goal (LTG) Decrease pain to no greater than 1/10 with all usual activities with radicular symptoms resolved LTG Duration 08/08/22 Assessment Summary Assessment Patient presents to PT with function-limiting pain bilateral low back and buttocks s/p experiencing pop in low back doing [place] of 390 lb lift. PT observed patient video showing poor form of rounded thoracic and lumbar spine. Signs and symptoms during evaluation were consistent with nerve involvement notable weakness left hip flexion, great toe extension, ankle dorsiflexion. Also noted were elevated left ASIS and pelvis, tight hip flexors left greater than right, positive slump test for sciatic nerve, decreased single leg stance left as compared to right. 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 Additionally patient c/o bilateral shoulder pain right greater than left. Patient also c/o bilateral shoulder pain mostly with lifting his arms out to the side and limited motion causing him to have to modify how he holds weight bar at his shoulders with moderate tightness pecs and decreased ER ROM and strength. He would benefit from physical therapy to decrease his pain, improve his strength, and allow him to resume his prior level of function with minimal to no pain. Physical Therapy Plan Frequency and Duration Frequency of Treatment 2x/Week Duration of treatment (weeks) 6 Plan of Care Start Date 06/08/22 Plan of Care End Date 08/08/22 Therapeutic Interventions Therapeutic Interventions Home Exercise Program,Manual Therapy,Neuromuscular Re- education,Patient/Caregiver Education,Self-Care/Home Management,Soft Tissue Mobilization,Taping, Therapeutic Activities, Therapeutic Exercises Modalities Cold Pack/Ice Massage,Electric Stimulation,Hot Packs, Infrared Therapy,Traction- Mechanical,Ultrasound Next Visit Focus/Plan Next Note Type Treatment Note Next Visit Plan Review HEP, check hip rotation ROM and strength, work on core stabilization seated therapy ball, consider trial mechanical traction. Work on squat and lift form.
--- NOTE | 2022-06-08 17:23 | PT.OPPOC ---
Physical, Occupational & Speech Therapy At [facility] Current Diagnoses Other chronic pain (06/08/22) Pain in right shoulder (06/08/22) Pain in left shoulder (06/08/22) Lumbago with sciatica, left side (06/08/22) Low back pain, unspecified (06/08/22) Pain in thoracic spine (06/08/22) Segmental and somatic dysfunction of lumbar region (06/08/22) Segmental and somatic dysfunction of sacral region (06/08/22) Segmental and somatic dysfunction of pelvic region (06/08/22) Segmental and somatic dysfunction of lower extremity (06/08/22) Segmental and somatic dysfunction of abdomen and other regions (06/08/22) Abnormal posture (06/08/22) Weakness (06/08/22) Visit Care Team Role Provider Type Naman Elise DO Attending Provider Physician Family Provider Primary Care Provider Referring Provider Specialty: [facility] Address: [address] [place] [address] Email: Plan Of Care PT-OP-T Assessment and Plan Start: 06/07/22 17:37 Freq: Status: Active Protocol: Document 06/08/22 15:19 [facility] (Rec: 06/08/22 17:17 [facility] [id number]) Physical Therapy Assessment Rehab Potential Rehabilitation Potential Good Evaluation Complexity Number of Personal Factors/Comorbidities 1-2 Number of Body Systems Impaired 3 Clinical Presentation at Evaluation Evolving Impairments Impairments Activity Tolerance,Pain, Posture,Strength Goals Five Impairment bilateral shoulder pain, weakness, and tightness Electrical Products Engineer Goal (LTG) patient to be independent with HEP to address shoulder dysfunction and demonstrate ROM and strength WNL LTG Duration 08/08/22 Four Impairment impaired body mechanics with weight lifting contributing to injury Short Term Goal (STG) instruct patient in correct form for lifting, squats, and any other identified exercises with difficulty STG Duration 07/09/22 Skilled Nursing Goal (LTG) Patient to demonstrate good body mechanics for his weight lifting activities to protect his spine and allow him to return to all prior activities safely and without pain Three Impairment left LE weakness and impaired core stabilization Short Term Goal (STG) patient to be instructed in HEP for purposes of LE strengthening and core stabilization STG Duration 07/09/22 Electrical Products Engineer Goal (LTG) Patient to be independent and compliant with HEP and dmeonstrate 5/5 muscle strength left LE and good core stabilization with ability to perform seated march without compensatory trunk movements for improved spinal stabiliztion and function LTG Duration 08/08/22 Two Impairment Oswestry disability index score 20% Electrical Products Engineer Goal (LTG) Decrease ROSS score to no greater than 5% as measure of improved activity tolerance LTG Duration 08/08/22 One Impairment bilateral low back/buttock pain 4/10 on pain scale with radicular symptoms Skilled Nursing Goal (LTG) Decrease pain to no greater than 1/10 with all usual activities with radicular symptoms resolved LTG Duration 08/08/22 Assessment Summary Assessment Patient presents to PT with function-limiting pain bilateral low back and buttocks s/p experiencing pop in low back doing [place] of 390 lb lift. PT observed patient video showing poor form of rounded thoracic and lumbar spine. Signs and symptoms during evaluation were consistent with nerve involvement notable weakness left hip flexion, great toe extension, ankle dorsiflexion. Also noted were elevated left ASIS and pelvis, tight hip flexors left greater than right, positive slump test for sciatic nerve, decreased single leg stance left as compared to right. 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 Additionally patient c/o bilateral shoulder pain right greater than left. Patient also c/o bilateral shoulder pain mostly with lifting his arms out to the side and limited motion causing him to have to modify how he holds weight bar at his shoulders with moderate tightness pecs and decreased ER ROM and strength. He would benefit from physical therapy to decrease his pain, improve his strength, and allow him to resume his prior level of function with minimal to no pain. Physical Therapy Plan Frequency and Duration Frequency of Treatment 2x/Week Duration of treatment (weeks) 6 Plan of Care Start Date 06/08/22 Plan of Care End Date 08/08/22 Therapeutic Interventions Therapeutic Interventions Home Exercise Program,Manual Therapy,Neuromuscular Re- education,Patient/Caregiver Education,Self-Care/Home Management,Soft Tissue Mobilization,Taping, Therapeutic Activities, Therapeutic Exercises Modalities Cold Pack/Ice Massage,Electric Stimulation,Hot Packs, Infrared Therapy,Traction- Mechanical,Ultrasound Next Visit Focus/Plan Next Note Type Treatment Note Next Visit Plan Review HEP, check hip rotation ROM and strength, work on core stabilization seated therapy ball, consider trial mechanical traction. Work on squat and lift form. Plan of Care Dates Plan of Care Start Date 06/08/22 Plan of Care End Date 08/08/22 Electronically Signed by: Cecilia Georges, PT 06/08/22 [id number] If you are in agreement with this Plan of Care, please return a signed and dated copy. I have reviewed this Plan of Care and certify that the skilled therapy services above are required to meet the patient?s needs. Physician Signature Date Printed Name and Credentials Clinical Instructor Signature Printed Name and Credentials
--- NOTE | 2022-06-08 17:25 | PT.OPPOC ---
Physical, Occupational & Speech Therapy At [facility] Current Diagnoses Other chronic pain (06/08/22) Pain in right shoulder (06/08/22) Pain in left shoulder (06/08/22) Lumbago with sciatica, left side (06/08/22) Low back pain, unspecified (06/08/22) Pain in thoracic spine (06/08/22) Segmental and somatic dysfunction of lumbar region (06/08/22) Segmental and somatic dysfunction of sacral region (06/08/22) Segmental and somatic dysfunction of pelvic region (06/08/22) Segmental and somatic dysfunction of lower extremity (06/08/22) Segmental and somatic dysfunction of abdomen and other regions (06/08/22) Abnormal posture (06/08/22) Weakness (06/08/22) Visit Care Team Role Provider Type Naman Elise DO Attending Provider Physician Family Provider Primary Care Provider Referring Provider Specialty: [facility] Address: [address] [place] [address] Email: Plan Of Care PT-OP-T Assessment and Plan Start: 06/07/22 17:37 Freq: Status: Active Protocol: Document 06/08/22 15:19 [facility] (Rec: 06/08/22 17:17 [facility] [id number]) Physical Therapy Assessment Rehab Potential Rehabilitation Potential Good Evaluation Complexity Number of Personal Factors/Comorbidities 1-2 Number of Body Systems Impaired 3 Clinical Presentation at Evaluation Evolving Impairments Impairments Activity Tolerance,Pain, Posture,Strength Goals Five Impairment bilateral shoulder pain, weakness, and tightness Assembly Stock Supervisor Goal (LTG) patient to be independent with HEP to address shoulder dysfunction and demonstrate ROM and strength WNL LTG Duration 08/08/22 Four Impairment impaired body mechanics with weight lifting contributing to injury Short Term Goal (STG) instruct patient in correct form for lifting, squats, and any other identified exercises with difficulty STG Duration 07/09/22 Snf Goal (LTG) Patient to demonstrate good body mechanics for his weight lifting activities to protect his spine and allow him to return to all prior activities safely and without pain Three Impairment left LE weakness and impaired core stabilization Short Term Goal (STG) patient to be instructed in HEP for purposes of LE strengthening and core stabilization STG Duration 07/09/22 Assembly Stock Supervisor Goal (LTG) Patient to be independent and compliant with HEP and dmeonstrate 5/5 muscle strength left LE and good core stabilization with ability to perform seated march without compensatory trunk movements for improved spinal stabiliztion and function LTG Duration 08/08/22 Two Impairment Oswestry disability index score 20% Assembly Stock Supervisor Goal (LTG) Decrease ROSS score to no greater than 5% as measure of improved activity tolerance LTG Duration 08/08/22 One Impairment bilateral low back/buttock pain 4/10 on pain scale with radicular symptoms Snf Goal (LTG) Decrease pain to no greater than 1/10 with all usual activities with radicular symptoms resolved LTG Duration 08/08/22 Assessment Summary Assessment Patient presents to PT with function-limiting pain bilateral low back and buttocks s/p experiencing pop in low back doing [place] of 390 lb lift. PT observed patient video showing poor form of rounded thoracic and lumbar spine. Signs and symptoms during evaluation were consistent with nerve involvement notable weakness left hip flexion, great toe extension, ankle dorsiflexion. Also noted were elevated left ASIS and pelvis, tight hip flexors left greater than right, positive slump test for sciatic nerve, decreased single leg stance left as compared to right. 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 Additionally patient c/o bilateral shoulder pain right greater than left. Patient also c/o bilateral shoulder pain mostly with lifting his arms out to the side and limited motion causing him to have to modify how he holds weight bar at his shoulders with moderate tightness pecs and decreased ER ROM and strength. He would benefit from physical therapy to decrease his pain, improve his strength, and allow him to resume his prior level of function with minimal to no pain. Physical Therapy Plan Frequency and Duration Frequency of Treatment 2x/Week Duration of treatment (weeks) 6 Plan of Care Start Date 06/08/22 Plan of Care End Date 08/08/22 Therapeutic Interventions Therapeutic Interventions Home Exercise Program,Manual Therapy,Neuromuscular Re- education,Patient/Caregiver Education,Self-Care/Home Management,Soft Tissue Mobilization,Taping, Therapeutic Activities, Therapeutic Exercises Modalities Cold Pack/Ice Massage,Electric Stimulation,Hot Packs, Infrared Therapy,Traction- Mechanical,Ultrasound Next Visit Focus/Plan Next Note Type Treatment Note Next Visit Plan Review HEP, check hip rotation ROM and strength, work on core stabilization seated therapy ball, consider trial mechanical traction. Work on squat and lift form. Plan of Care Dates Plan of Care Start Date 06/08/22 Plan of Care End Date 08/08/22 Electronically Signed by: Cecilia Georges, PT 06/08/22 [id number] If you are in agreement with this Plan of Care, please return a signed and dated copy. I have reviewed this Plan of Care and certify that the skilled therapy services above are required to meet the patient?s needs. Physician Signature Date Printed Name and Credentials Clinical Instructor Signature Printed Name and Credentials
--- NOTE | 2022-06-12 11:22 | PT.OTN ---
Current Diagnoses Other chronic pain (06/12/22) Pain in right shoulder (06/12/22) Pain in left shoulder (06/12/22) Lumbago with sciatica, left side (06/12/22) Low back pain, unspecified (06/12/22) Pain in thoracic spine (06/12/22) Segmental and somatic dysfunction of lumbar region (06/12/22) Segmental and somatic dysfunction of sacral region (06/12/22) Segmental and somatic dysfunction of pelvic region (06/12/22) Segmental and somatic dysfunction of lower extremity (06/12/22) Segmental and somatic dysfunction of abdomen and other regions (06/12/22) Abnormal posture (06/12/22) Weakness (06/12/22) Physical Therapy Treatment Note PT-OP-A Visit Information Start: 06/07/22 17:37 Freq: Status: Active Protocol: Document 06/12/22 10:35 SP (Rec: 06/12/22 11:48 SP [id number]) Out-Patient Physical Therapy Visit Information Visit Information Visit Type Treatment Note Visit Start Time 10:35 Visit Stop Time 11:22 Total Visit Minutes 47 Visit Number 2 Number of DIRECTOR EMERGENCY SERVICES Visits 1 Evaluation Information Evaluation Date 06/08/22 PT-OP-B Current Condition Start: 06/07/22 17:37 Freq: Status: Active Protocol: Document 06/08/22 15:19 SAK (Rec: 06/08/22 17:17 SAK [id number]) Current Condition History of Current Condition Onset Date 05/10/22 Current Complaints tomas LBP/buttock pain History of Current Condition Doing a lift , went for [place] at 390 felt and heard pop in low back, with resulting pain LB radiating into posterior left LE. States he had a friend videotaping and had poor form with rounded thoracic and lumbar spines. Has been getting better gradually with radiating pain decreasing to mostly just into buttocks now but pain persists. States he lifts weights 5-6 days per week, alternating different body parts does ice baths 2x/wk, warms up with high reps and low weight prior to his lifting routine. Also reports some mild discomfort with having BM since injury, and pain right anterior hip when moving in bed. Trying to do a little more stretching, had him do a few yoga poses. Patient also c/o bilateral shoulder pain mostly with lifting his arms out to the side and limited motion causing him to have to modify how he holds weight bar at his shoulders with moderate tightness pecs and decreased ER ROM and strength. States he has a high pain tolerance. Lifting routine: Sunday chest, arms chest, hips, Sunday legs. Prior Treatments and Tests x-ray negative,no further imaging. Future Testing and Treatments Planned none at this time. 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 PT-OP-D Balance Start: 06/07/22 17:37 Freq: Status: Active Protocol: Document 06/08/22 15:19 SAK (Rec: 06/08/22 17:17 SAK [id number]) OP-PT Balance Assessment Standing Balance Standing Balance Comments SLS right 12 sec, left 7 sec Dye Fall Scale Copyright Permission PT-OP-F Manual Assessment Start: 06/07/22 17:37 Freq: Status: Active Protocol: Document 06/08/22 15:19 SAK (Rec: 06/08/22 17:17 SAK [id number]) Manual Assessments Soft Tissue Assessment Soft Tissue Mobility Assessment tightness bilateral lumbar spine PT-OP-G Mobility & Gait Start: 06/07/22 17:37 Freq: Status: Active Protocol: Document 06/08/22 15:19 SAK (Rec: 06/08/22 17:17 SAK [id number]) OP Gait Assessment Gait Gait Assistance Required: Independent Assistive Devices Assistive Device None PT-OP-H Neuro Start: 06/07/22 17:37 Freq: Status: Active Protocol: Document 06/08/22 15:19 [facility] (Rec: 06/08/22 17:17 [facility] [id number]) Sensation Evaluation Gross Sensation Gross Sensation Left LE Impaired Sensation Description Paresthesia PT-OP-J Posture/Palpation/Skin Start: 06/07/22 17:37 Freq: Status: Active Protocol: Document 06/08/22 15:19 [facility] (Rec: 06/08/22 17:17 [facility] [id number]) Posture Evaluation Position Standing Head/C-Spine Posture Forward Head T-Spine Posture Increased Kyphosis L-Spine Posture Flattened Scapula Posture (L) Protracted,(R) Protracted Arm Posture (L) Internally Rotated,(R) Internally Rotated Pelvis Posture Posterior Tilted Palpation Assessment Location tomas paraspinals Palpation Findings Soft Tissue Tightness,Muscle Guarding PT-OP-K Range of Motion Start: 06/07/22 17:37 Freq: Status: Active Protocol: Document 06/08/22 15:19 [facility] (Rec: 06/08/22 17:17 [facility] [id number]) Lumbar Spine Range of Motion Lumbar Spine Active Testing Position Standing Flexion 40 Extension 20 Rotation Left 35 Rotation Right 35 Lateral Flexion Left 30 Lateral Flexion Right 30 ROM Limitations Soft Tissue Tightness,Pain Comments with flexion pain and tightness left posterior thigh Hip Goniometric Range of Motion Hip ROM Limitations Hip ROM Limitations Soft Tissue Tightness Comments mod tightness left hip flexors , tomas hamstrings PT-OP-M Strength Start: 06/07/22 17:37 Freq: Status: Active Protocol: Document 06/08/22 15:19 [facility] (Rec: 06/08/22 17:17 [facility] [id number]) Trunk Strength Trunk Manual Muscle Testing Flexion 4 Good Extension 4 Good Core Stabilization decreased with seated march noted moderate trunk compensation Hip Strength Hip Manual Muscle Testing Left Flexion (L2) 4 Good Right Flexion (L2) 5 Normal Knee Strength Knee Manual Muscle Testing Left Flexion (S2) 4 Good Extension (L3) 4 Good Right Flexion (S2) 5 Normal Extension (L3) 5 Normal Ankle/Foot Strength Ankle and Foot Manual Muscle Testing Left Dorsiflexion (L4) 4+ Good+ Right Dorsiflexion (L4) 5 Normal Plantarflexion (S1) 5 Normal Toe Strength Toe Manual Muscle Testing Left Great Toe Extension 4 Good Right Great Toe Extension 5 Normal PT-OP-Q Treatments Start: 06/07/22 17:37 Freq: Status: Active Protocol: Document 06/12/22 10:35 SP (Rec: 06/12/22 11:48 SP [id number]) Gym Equipment Shuttle Recovery unilateral squat Details cues knee alignment, soft knee extension (no lock out), Resistance 75# (all new bands) Reps/Time x10 Therapeutic Exercises Supine Exercises over foam roller Supine Exercise Name added to HEP: pec stretch various angles, ABD/ ER (Ws) mid range ROM OH Side bilateral Equipment Used (decline HO) Reps/Minutes 10SH various angles pec, Ws 10 reps AROM Comments cued neutral LS toward foam roller throughout UE AROM Rodriguez Stretch Supine Exercise Name HEP reviewed Reps/Minutes 30 x3 Comments pre/post manual- improved increase ROM Standing Exercises squat form Standing Exercise Name Improved no TS rounding Equipment Used front mirror Reps/Minutes multiple reps Comments cued little more PPT neutral, chin nod down looking at baseboard wall CS Other Exercises 1/2 kneel hip flexor stretch Other Exercise Name added to HEP: quad, TFL, psoas (OH reach) Side bilateral Equipment Used oval cushion under knee Reps/Minutes 60 each x2 (contact table as needed) Comments cued awareness neutral LS, wt shift fwd- improved anterior hip/no LB recrui Manual Therapy Treatment Soft Tissue Mobilization hips Body Location L>R psoas, iliacus, TFL, prox ITB, prox quad Mobilization Type Strumming,Sustained Pressure, Other Intensity/Depth Moderate Body Position Hooklying Comments manual with cues breath, ed use ball at wall for TLF/ ITB/ prox quad besides self use foam roller/massage gun with attachments. L>R tight, improved increase AROM extension rodriguez stretch pre vs post. PT-OP-T Assessment and Plan Start: 06/07/22 17:37 Freq: Status: Active Protocol: Document 06/12/22 10:35 SP (Rec: 06/12/22 11:48 SP [id number]) Physical Therapy Assessment Goals Five Impairment bilateral shoulder pain, weakness, and tightness Residential Goal (LTG) patient to be independent with HEP to address shoulder dysfunction and demonstrate ROM and strength WNL LTG Duration 08/08/22 Four Impairment impaired body mechanics with weight lifting contributing to injury Short Term Goal (STG) instruct patient in correct form for lifting, squats, and any other identified exercises with difficulty STG Duration 07/09/22 Residential Goal (LTG) Patient to demonstrate good body mechanics for his weight lifting activities to protect his spine and allow him to return to all prior activities safely and without pain Three Impairment left LE weakness and impaired core stabilization Short Term Goal (STG) patient to be instructed in HEP for purposes of LE strengthening and core stabilization STG Duration 07/09/22 Tissue Recovery Technician Goal (LTG) Patient to be independent and compliant with HEP and dmeonstrate 5/5 muscle strength left LE and good core stabilization with ability to perform seated march without compensatory trunk movements for improved spinal stabiliztion and function LTG Duration 08/08/22 Two Impairment Oswestry disability index score 20% Tissue Recovery Technician Goal (LTG) Decrease ROSS score to no greater than 5% as measure of improved activity tolerance LTG Duration 08/08/22 One Impairment bilateral low back/buttock pain 4/10 on pain scale with radicular symptoms Tissue Recovery Technician Goal (LTG) Decrease pain to no greater than 1/10 with all usual activities with radicular symptoms resolved LTG Duration 08/08/22 Assessment Summary Assessment Pt responded well to manual, use ball/foam roller/ rolling pin and added 1/2 kneel hip flexor stretch and supine foam roller to improved flexibility and trunk alignment, decrease LB recruitment. Improved form squat with cues for CS alignment and UE ROM over foam roller. Physical Therapy Plan Frequency and Duration Frequency of Treatment 2x/Week Duration of treatment (weeks) 6 Plan of Care Start Date 06/08/22 Plan of Care End Date 08/08/22 Therapeutic Interventions Therapeutic Interventions Home Exercise Program,Manual Therapy,Neuromuscular Re- education,Patient/Caregiver Education,Self-Care/Home Management,Soft Tissue Mobilization,Taping, Therapeutic Activities, Therapeutic Exercises Modalities Cold Pack/Ice Massage,Electric Stimulation,Hot Packs, Infrared Therapy,Traction- Mechanical,Ultrasound Next Visit Focus/Plan Next Note Type Treatment Note Next Visit Plan Review HEP, Progress weighted UE ROM ABD/ ER over foam roller. NExt tx assess lift and SL stability cone taps/reach before RDL. POC: check hip rotation ROM and strength, work on core stabilization seated therapy ball, consider trial mechanical traction. Work on squat and lift form.
--- NOTE | 2022-06-19 12:15 | PT.OTN ---
Current Diagnoses Other chronic pain (06/19/22) Pain in right shoulder (06/19/22) Pain in left shoulder (06/19/22) Lumbago with sciatica, left side (06/19/22) Pain in thoracic spine (06/19/22) Segmental and somatic dysfunction of lumbar region (06/19/22) Segmental and somatic dysfunction of sacral region (06/19/22) Segmental and somatic dysfunction of pelvic region (06/19/22) Segmental and somatic dysfunction of lower extremity (06/19/22) Segmental and somatic dysfunction of abdomen and other regions (06/19/22) Abnormal posture (06/19/22) Weakness (06/19/22) Physical Therapy Treatment Note PT-OP-A Visit Information Start: 06/07/22 17:37 Freq: Status: Active Protocol: Document 06/19/22 11:17 SAK (Rec: 06/19/22 12:15 SAK [id number]) Out-Patient Physical Therapy Visit Information Visit Information Visit Type Treatment Note Visit Start Time 11:18 Visit Stop Time 12:00 Total Visit Minutes 42 Visit Number 3 Number of SALES RESEARCH ANALYST Visits 0 Evaluation Information Evaluation Date 06/08/22 PT-OP-B Current Condition Start: 06/07/22 17:37 Freq: Status: Active Protocol: Document 06/19/22 11:17 SAK (Rec: 06/19/22 12:15 SAK [id number]) Current Condition History of Current Condition Onset Date 05/10/22 Current Complaints tomas LBP/buttock pain History of Current Condition Doing a lift , went for [place] at 390 felt and heard pop in low back, with resulting pain LB radiating into posterior left LE. States he had a friend videotaping and had poor form with rounded thoracic and lumbar spines. Has been getting better gradually with radiating pain decreasing to mostly just into buttocks now but pain persists. States he lifts weights 5-6 days per week, alternating different body parts does ice baths 2x/wk, warms up with high reps and low weight prior to his lifting routine. Also reports some mild discomfort with having BM since injury, and pain right anterior hip when moving in bed. Trying to do a little more stretching, had him do a few yoga poses. Patient also c/o bilateral shoulder pain mostly with lifting his arms out to the side and limited motion causing him to have to modify how he holds weight bar at his shoulders with moderate tightness pecs and decreased ER ROM and strength. States he has a high pain tolerance. Lifting routine: Sunday chest, arms chest, hips, Sunday legs. Prior Treatments and Tests x-ray negative,no further imaging. Future Testing and Treatments Planned none at this time. Treatment Goals Patient/Caregiver Goals eliminate pain, be able to return to prior weight lifting routine without pain, with good form Prior Functional Status Baseline Function- ADL's Independent Baseline Function- Mobility Independent Baseline Function- Gait indep Baseline Function- Recreation/Hobbies weight-lifting PT-OP-C Subjective Start: 06/07/22 17:37 Freq: Status: Active Protocol: Document 06/19/22 11:17 [facility] (Rec: 06/19/22 12:15 [facility] [id number]) OP-PT Subjective Patient Comments Patient Comments Did first lift with light weight starting with 60#, sore but no pain. Took video of himself for reference, feels form better. PT-OP-D Balance Start: 06/07/22 17:37 Freq: Status: Active Protocol: Document 06/08/22 15:19 [facility] (Rec: 06/08/22 17:17 [facility] [id number]) OP-PT Balance Assessment Standing Balance Standing Balance Comments SLS right 12 sec, left 7 sec Dye Fall Scale Copyright Permission PT-OP-F Manual Assessment Start: 06/07/22 17:37 Freq: Status: Active Protocol: Document 06/08/22 15:19 [facility] (Rec: 06/08/22 17:17 [facility] [id number]) Manual Assessments Soft Tissue Assessment Soft Tissue Mobility Assessment tightness bilateral lumbar spine PT-OP-G Mobility & Gait Start: 06/07/22 17:37 Freq: Status: Active Protocol: Document 06/08/22 15:19 SAK (Rec: 06/08/22 17:17 [facility] [id number]) OP Gait Assessment Gait Gait Assistance Required: Independent Assistive Devices Assistive Device None PT-OP-H Neuro Start: 06/07/22 17:37 Freq: Status: Active Protocol: Document 06/08/22 15:19 SAK (Rec: 06/08/22 17:17 [facility] [id number]) Sensation Evaluation Gross Sensation Gross Sensation Left LE Impaired Sensation Description Paresthesia PT-OP-J Posture/Palpation/Skin Start: 06/07/22 17:37 Freq: Status: Active Protocol: Document 06/08/22 15:19 [facility] (Rec: 06/08/22 17:17 [facility] [id number]) Posture Evaluation Position Standing Head/C-Spine Posture Forward Head T-Spine Posture Increased Kyphosis L-Spine Posture Flattened Scapula Posture (L) Protracted,(R) Protracted Arm Posture (L) Internally Rotated,(R) Internally Rotated Pelvis Posture Posterior Tilted Palpation Assessment Location tomas paraspinals Palpation Findings Soft Tissue Tightness,Muscle Guarding PT-OP-K Range of Motion Start: 06/07/22 17:37 Freq: Status: Active Protocol: Document 06/08/22 15:19 [facility] (Rec: 06/08/22 17:17 [facility] [id number]) Lumbar Spine Range of Motion Lumbar Spine Active Testing Position Standing Flexion 40 Extension 20 Rotation Left 35 Rotation Right 35 Lateral Flexion Left 30 Lateral Flexion Right 30 ROM Limitations Soft Tissue Tightness,Pain Comments with flexion pain and tightness left posterior thigh Hip Goniometric Range of Motion Hip ROM Limitations Hip ROM Limitations Soft Tissue Tightness Comments mod tightness left hip flexors , tomas hamstrings PT-OP-M Strength Start: 06/07/22 17:37 Freq: Status: Active Protocol: Document 06/08/22 15:19 [facility] (Rec: 06/08/22 17:17 [facility] [id number]) Trunk Strength Trunk Manual Muscle Testing Flexion 4 Good Extension 4 Good Core Stabilization decreased with seated march noted moderate trunk compensation Hip Strength Hip Manual Muscle Testing Left Flexion (L2) 4 Good Right Flexion (L2) 5 Normal Knee Strength Knee Manual Muscle Testing Left Flexion (S2) 4 Good Extension (L3) 4 Good Right Flexion (S2) 5 Normal Extension (L3) 5 Normal Ankle/Foot Strength Ankle and Foot Manual Muscle Testing Left Dorsiflexion (L4) 4+ Good+ Right Dorsiflexion (L4) 5 Normal Plantarflexion (S1) 5 Normal Toe Strength Toe Manual Muscle Testing Left Great Toe Extension 4 Good Right Great Toe Extension 5 Normal PT-OP-Q Treatments Start: 06/07/22 17:37 Freq: Status: Active Protocol: Document 06/19/22 11:17 [facility] (Rec: 06/19/22 12:15 [facility] [id number]) Gym Equipment Therapeutic Ball sitting Exercise Details LAQ Ball Size/Color red 65 Reps/Duration 10x Therapeutic Exercises Supine Exercises Sh ER Resistance L3 TB Reps/Minutes 10x D1 flex Resistance L3 TB Equipment Used foam roller Reps/Minutes 10x over foam roller Supine Exercise Name added to HEP: pec stretch various angles, ABD/ ER (Ws) mid range ROM OH Side bilateral Reps/Minutes 10SH various angles pec, Ws 10 reps AROM Comments cued neutral LS toward foam roller throughout UE AROM Standing Exercises wall posture Standing Exercise Name add should ER at 90 deg ab Comments cues fo core, chin tuck. row Resistance 30# Reps/Minutes 10x2 squat form Standing Exercise Name reviewed video Equipment Used front mirror Reps/Minutes multiple reps Comments cued little more PPT neutral, chin nod down looking at baseboard wall CS Other Exercises Prone I, T, Y Resistance 3# Reps/Minutes 10x ea Comments cues for spinal alignment, scapular activation 1/2 kneel hip flexor stretch Other Exercise Name HEP Manual Therapy Treatment Soft Tissue Mobilization calf Body Location lateral, proximal Mobilization Type Strumming,Sustained Pressure Intensity/Depth Deep Self-Care/Home Management Treatment Education Patient Education Body Mechanics,Home Exercise Program,Pain Management, Posture,Safety PT-OP-T Assessment and Plan Start: 06/07/22 17:37 Freq: Status: Active Protocol: Document 06/19/22 11:17 [facility] (Rec: 06/19/22 12:15 [facility] [id number]) Physical Therapy Assessment Goals Five Impairment bilateral shoulder pain, weakness, and tightness Fdc Goal (LTG) patient to be independent with HEP to address shoulder dysfunction and demonstrate ROM and strength WNL LTG Duration 08/08/22 Four Impairment impaired body mechanics with weight lifting contributing to injury Short Term Goal (STG) instruct patient in correct form for lifting, squats, and any other identified exercises with difficulty STG Duration 07/09/22 Supervisor Major Appliance Assembly Goal (LTG) Patient to demonstrate good body mechanics for his weight lifting activities to protect his spine and allow him to return to all prior activities safely and without pain Three Impairment left LE weakness and impaired core stabilization Short Term Goal (STG) patient to be instructed in HEP for purposes of LE strengthening and core stabilization STG Duration 07/09/22 Supervisor Major Appliance Assembly Goal (LTG) Patient to be independent and compliant with HEP and dmeonstrate 5/5 muscle strength left LE and good core stabilization with ability to perform seated march without compensatory trunk movements for improved spinal stabiliztion and function LTG Duration 08/08/22 Two Impairment Oswestry disability index score 20% Supervisor Major Appliance Assembly Goal (LTG) Decrease ROSS score to no greater than 5% as measure of improved activity tolerance LTG Duration 08/08/22 One Impairment bilateral low back/buttock pain 4/10 on pain scale with radicular symptoms Fdc Goal (LTG) Decrease pain to no greater than 1/10 with all usual activities with radicular symptoms resolved LTG Duration 08/08/22 Assessment Summary Assessment Patient weak posterior chain musculature, prone I, T, Y ex challenging with 3#, and wall posture sh ER fatigues quickly with inability to get head to wall without ext and unable to get back of hand against wall. Seated therapy ball LAQ challenging for core. Physical Therapy Plan Frequency and Duration Frequency of Treatment 2x/Week Duration of treatment (weeks) 6 Plan of Care Start Date 06/08/22 Plan of Care End Date 08/08/22 Therapeutic Interventions Therapeutic Interventions Home Exercise Program,Manual Therapy,Neuromuscular Re- education,Patient/Caregiver Education,Self-Care/Home Management,Soft Tissue Mobilization,Taping, Therapeutic Activities, Therapeutic Exercises Modalities Cold Pack/Ice Massage,Electric Stimulation,Hot Packs, Infrared Therapy,Traction- Mechanical,Ultrasound Next Visit Focus/Plan Next Note Type Treatment Note Next Visit Plan Review HEP, Progress weighted UE ROM ABD/ ER over foam roller. NExt tx assess lift and SL stability cone taps/reach before RDL. POC: check hip rotation ROM and strength, work on core stabilization seated therapy ball, consider trial mechanical traction. Work on squat and lift form.
--- NOTE | 2022-07-05 11:36 | PT.OTN ---
Current Diagnoses Other chronic pain (07/05/22) Pain in right shoulder (07/05/22) Pain in left shoulder (07/05/22) Lumbago with sciatica, left side (07/05/22) Pain in thoracic spine (07/05/22) Segmental and somatic dysfunction of lumbar region (07/05/22) Segmental and somatic dysfunction of sacral region (07/05/22) Segmental and somatic dysfunction of pelvic region (07/05/22) Segmental and somatic dysfunction of lower extremity (07/05/22) Segmental and somatic dysfunction of abdomen and other regions (07/05/22) Abnormal posture (07/05/22) Weakness (07/05/22) Physical Therapy Treatment Note PT-OP-A Visit Information Start: 06/07/22 17:37 Freq: Status: Active Protocol: Document 07/05/22 10:34 SP (Rec: 07/05/22 11:36 SP [id number]) Out-Patient Physical Therapy Visit Information Visit Information Visit Type Treatment Note Visit Start Time 10:34 Visit Stop Time 15:22 Total Visit Minutes 48 Visit Number 4 Number of PHYSICIAN SUPPORT COORDINATOR Visits 1 Evaluation Information Evaluation Date 06/08/22 PT-OP-B Current Condition Start: 06/07/22 17:37 Freq: Status: Active Protocol: Document 06/19/22 11:17 SAK (Rec: 06/19/22 12:15 SAK [id number]) Current Condition History of Current Condition Onset Date 05/10/22 Current Complaints tomas LBP/buttock pain History of Current Condition Doing a lift , went for [place] at 390 felt and heard pop in low back, with resulting pain LB radiating into posterior left LE. States he had a friend videotaping and had poor form with rounded thoracic and lumbar spines. Has been getting better gradually with radiating pain decreasing to mostly just into buttocks now but pain persists. States he lifts weights 5-6 days per week, alternating different body parts does ice baths 2x/wk, warms up with high reps and low weight prior to his lifting routine. Also reports some mild discomfort with having BM since injury, and pain right anterior hip when moving in bed. Trying to do a little more stretching, had him do a few yoga poses. Patient also c/o bilateral shoulder pain mostly with lifting his arms out to the side and limited motion causing him to have to modify how he holds weight bar at his shoulders with moderate tightness pecs and decreased ER ROM and strength. States he has a high pain tolerance. Lifting routine: Sunday chest, arms chest, hips, Sunday legs. Prior Treatments and Tests x-ray negative,no further imaging. Future Testing and Treatments Planned none at this time. Treatment Goals Patient/Caregiver Goals eliminate pain, be able to return to prior weight lifting routine without pain, with good form Prior Functional Status Baseline Function- ADL's Independent Baseline Function- Mobility Independent Baseline Function- Gait indep Baseline Function- Recreation/Hobbies weight-lifting PT-OP-C Subjective Start: 06/07/22 17:37 Freq: Status: Active Protocol: Document 07/05/22 10:34 SP (Rec: 07/05/22 11:36 SP [id number]) OP-PT Subjective Patient Comments Patient Comments Pt reports improving abd/ ER with holding bar BUE, still having irritation in B SI/LS area into deep squat, still pain in B knees. He has new insurance and looking into coverage massage and MRI to see why continue have pain. PT-OP-D Balance Start: 06/07/22 17:37 Freq: Status: Active Protocol: Document 06/08/22 15:19 SAK (Rec: 06/08/22 17:17 SAK [id number]) OP-PT Balance Assessment Standing Balance Standing Balance Comments SLS right 12 sec, left 7 sec Dye Fall Scale Copyright Permission PT-OP-F Manual Assessment Start: 06/07/22 17:37 Freq: Status: Active Protocol: Document 06/08/22 15:19 SAK (Rec: 06/08/22 17:17 SAK [id number]) Manual Assessments Soft Tissue Assessment Soft Tissue Mobility Assessment tightness bilateral lumbar spine PT-OP-G Mobility & Gait Start: 06/07/22 17:37 Freq: Status: Active Protocol: Document 06/08/22 15:19 SAK (Rec: 06/08/22 17:17 SAK [id number]) OP Gait Assessment Gait Gait Assistance Required: Independent Assistive Devices Assistive Device None PT-OP-H Neuro Start: 06/07/22 17:37 Freq: Status: Active Protocol: Document 06/08/22 15:19 SAK (Rec: 06/08/22 17:17 SAK [id number]) Sensation Evaluation Gross Sensation Gross Sensation Left LE Impaired Sensation Description Paresthesia PT-OP-J Posture/Palpation/Skin Start: 06/07/22 17:37 Freq: Status: Active Protocol: Document 06/08/22 15:19 SAK (Rec: 06/08/22 17:17 SAK [id number]) Posture Evaluation Position Standing Head/C-Spine Posture Forward Head T-Spine Posture Increased Kyphosis L-Spine Posture Flattened Scapula Posture (L) Protracted,(R) Protracted Arm Posture (L) Internally Rotated,(R) Internally Rotated Pelvis Posture Posterior Tilted Palpation Assessment Location tomas paraspinals Palpation Findings Soft Tissue Tightness,Muscle Guarding PT-OP-K Range of Motion Start: 06/07/22 17:37 Freq: Status: Active Protocol: Document 06/08/22 15:19 SAK (Rec: 06/08/22 17:17 SAK [id number]) Lumbar Spine Range of Motion Lumbar Spine Active Testing Position Standing Flexion 40 Extension 20 Rotation Left 35 Rotation Right 35 Lateral Flexion Left 30 Lateral Flexion Right 30 ROM Limitations Soft Tissue Tightness,Pain Comments with flexion pain and tightness left posterior thigh Hip Goniometric Range of Motion Hip ROM Limitations Hip ROM Limitations Soft Tissue Tightness Comments mod tightness left hip flexors , tomas hamstrings PT-OP-M Strength Start: 06/07/22 17:37 Freq: Status: Active Protocol: Document 06/08/22 15:19 [facility] (Rec: 06/08/22 17:17 [facility] [id number]) Trunk Strength Trunk Manual Muscle Testing Flexion 4 Good Extension 4 Good Core Stabilization decreased with seated march noted moderate trunk compensation Hip Strength Hip Manual Muscle Testing Left Flexion (L2) 4 Good Right Flexion (L2) 5 Normal Knee Strength Knee Manual Muscle Testing Left Flexion (S2) 4 Good Extension (L3) 4 Good Right Flexion (S2) 5 Normal Extension (L3) 5 Normal Ankle/Foot Strength Ankle and Foot Manual Muscle Testing Left Dorsiflexion (L4) 4+ Good+ Right Dorsiflexion (L4) 5 Normal Plantarflexion (S1) 5 Normal Toe Strength Toe Manual Muscle Testing Left Great Toe Extension 4 Good Right Great Toe Extension 5 Normal PT-OP-Q Treatments Start: 06/07/22 17:37 Freq: Status: Active Protocol: Document 07/05/22 10:34 SP (Rec: 07/05/22 11:36 SP [id number]) Therapeutic Exercises Standing Exercises abd w/ ER throwing motion Standing Exercise Name eccentric AAROM ABD/ ER- added to HEP declined HOs Resistance Tb #3 Reps/Minutes x10 reps Comments cued neutral LS, slow eccentric abd/ er ROM stretch form hold barbell- good squat form Equipment Used front mirror w/ use trek pole on back vs // FF UE OH: post manual Reps/Minutes multiple reps Comments improved form back/shld demo'd Other Exercises self STMs Other Exercise Name verbal review: uses foam roller , massage gun prone Equipment Used lacross ball under prox HS and calf sustained pressure/ roll Comments best results HS with AP/ROM, calf rolling sup/inf/lateral 1/2 kneel hip flexor stretch Other Exercise Name added to HEP: quad, TFL, psoas (OH reach) Side bilateral Equipment Used oval cushion under knee Reps/Minutes 60 each x2 (contact table as needed) Comments good neutral LS, wt shift fwd- improved anterior hip/no LB recrui Manual Therapy Treatment Soft Tissue Mobilization calf Body Location lateral, proximal Mobilization Type Strumming,Sustained Pressure Intensity/Depth Deep hips Body Location L prox calf, HS proximal (L knee extended over therapist shld) Mobilization Type Strumming,Sustained Pressure, Other Intensity/Depth Moderate Body Position Hooklying Comments improved decrease tension Joint Mobilizations hip mob Joint L hip glide PNF: flex/ER/ add, hip flex/knee extended Direction inferior glide Grade II Body Position Supine Comments good feedback distraction in L hip, painfree PT-OP-T Assessment and Plan Start: 06/07/22 17:37 Freq: Status: Active Protocol: Document 07/05/22 10:34 SP (Rec: 07/05/22 11:36 SP [id number]) Physical Therapy Assessment Goals Five Impairment bilateral shoulder pain, weakness, and tightness Fpc Goal (LTG) patient to be independent with HEP to address shoulder dysfunction and demonstrate ROM and strength WNL LTG Duration 08/08/22 Four Impairment impaired body mechanics with weight lifting contributing to injury Short Term Goal (STG) instruct patient in correct form for lifting, squats, and any other identified exercises with difficulty STG Duration 07/09/22 Fpc Goal (LTG) Patient to demonstrate good body mechanics for his weight lifting activities to protect his spine and allow him to return to all prior activities safely and without pain Three Impairment left LE weakness and impaired core stabilization Short Term Goal (STG) patient to be instructed in HEP for purposes of LE strengthening and core stabilization STG Duration 07/09/22 Event Attendant Goal (LTG) Patient to be independent and compliant with HEP and dmeonstrate 5/5 muscle strength left LE and good core stabilization with ability to perform seated march without compensatory trunk movements for improved spinal stabiliztion and function LTG Duration 08/08/22 Two Impairment Oswestry disability index score 20% Event Attendant Goal (LTG) Decrease ROSS score to no greater than 5% as measure of improved activity tolerance LTG Duration 08/08/22 One Impairment bilateral low back/buttock pain 4/10 on pain scale with radicular symptoms Event Attendant Goal (LTG) Decrease pain to no greater than 1/10 with all usual activities with radicular symptoms resolved LTG Duration 08/08/22 Assessment Summary Assessment Pt good feedback response to PNF manual L hip mob able squat with decreased hip/SI tension and added eccentric resisted abd/ ER for increased ROM/ flexibility to hold trek pole (barbell assimulation) on upper shld/back by end tx. Better understanding self massage option HS and calf ontension and MWM ankle ROM for active release. Physical Therapy Plan Frequency and Duration Frequency of Treatment 2x/Week Duration of treatment (weeks) 6 Plan of Care Start Date 06/08/22 Plan of Care End Date 08/08/22 Therapeutic Interventions Therapeutic Interventions Home Exercise Program,Manual Therapy,Neuromuscular Re- education,Patient/Caregiver Education,Self-Care/Home Management,Soft Tissue Mobilization,Taping, Therapeutic Activities, Therapeutic Exercises Modalities Cold Pack/Ice Massage,Electric Stimulation,Hot Packs, Infrared Therapy,Traction- Mechanical,Ultrasound Next Visit Focus/Plan Next Note Type Treatment Note Next Visit Plan Review HEP, Progress weighted UE ROM ABD/ ER over foam roller. NExt tx assess lift and SL stability cone taps/reach before RDL. POC: check hip rotation ROM and strength, work on core stabilization seated therapy ball, consider trial mechanical traction. Work on squat and lift form.
--- NOTE | 2022-07-13 08:05 | PT-OP ANOTE ---
patient cancelled appt
--- NOTE | 2022-07-24 10:42 | PT-OP ANOTE ---
cancelled due to out of town for family issue
--- NOTE | 2022-07-26 16:25 | PT-OP ANOTE ---
out of town due to family issue
--- NOTE | 2022-10-23 15:55 | PT.OPDS ---
Current Diagnoses Other chronic pain (07/05/22) Pain in right shoulder (07/05/22) Pain in left shoulder (07/05/22) Lumbago with sciatica, left side (07/05/22) Pain in thoracic spine (07/05/22) Segmental and somatic dysfunction of lumbar region (07/05/22) Segmental and somatic dysfunction of sacral region (07/05/22) Segmental and somatic dysfunction of pelvic region (07/05/22) Segmental and somatic dysfunction of lower extremity (07/05/22) Segmental and somatic dysfunction of abdomen and other regions (07/05/22) Abnormal posture (07/05/22) Weakness (07/05/22) Visit Care Team Role Provider Type Naman Elise DO Attending Provider Physician Family Provider Primary Care Provider Referring Provider Specialty: [facility] Practice Address: [address] [place] [address] Email: Visit Number Visit Number 4 Discharge Summary PT-OP-B Current Condition Start: 06/07/22 17:37 Freq: Status: Active Protocol: Document 06/19/22 11:17 [facility] (Rec: 06/19/22 12:15 [facility] [id number]) Current Condition History of Current Condition Onset Date 05/10/22 Current Complaints tomas LBP/buttock pain History of Current Condition Doing a lift , went for [place] at 390 felt and heard pop in low back, with resulting pain LB radiating into posterior left LE. States he had a friend videotaping and had poor form with rounded thoracic and lumbar spines. Has been getting better gradually with radiating pain decreasing to mostly just into buttocks now but pain persists. States he lifts weights 5-6 days per week, alternating different body parts does ice baths 2x/wk, warms up with high reps and low weight prior to his lifting routine. Also reports some mild discomfort with having BM since injury, and pain right anterior hip when moving in bed. Trying to do a little more stretching, had him do a few yoga poses. Patient also c/o bilateral shoulder pain mostly with lifting his arms out to the side and limited motion causing him to have to modify how he holds weight bar at his shoulders with moderate tightness pecs and decreased ER ROM and strength. States he has a high pain tolerance. Lifting routine: Sunday chest, arms chest, hips, Sunday legs. Prior Treatments and Tests x-ray negative,no further imaging. Future Testing and Treatments Planned none at this time. Treatment Goals Patient/Caregiver Goals eliminate pain, be able to return to prior weight lifting routine without pain, with good form Prior Functional Status Baseline Function- ADL's Independent Baseline Function- Mobility Independent Baseline Function- Gait indep Baseline Function- Recreation/Hobbies weight-lifting PT-OP-C Subjective Start: 06/07/22 17:37 Freq: Status: Active Protocol: Document 07/05/22 10:34 SP (Rec: 07/05/22 11:36 SP [id number]) OP-PT Subjective Patient Comments Patient Comments Pt reports improving abd/ ER with holding bar BUE, still having irritation in B SI/LS area into deep squat, still pain in B knees. He has new insurance and looking into coverage massage and MRI to see why continue have pain. PT-OP-D Balance Start: 06/07/22 17:37 Freq: Status: Active Protocol: Document 06/08/22 15:19 [facility] (Rec: 06/08/22 17:17 [facility] [id number]) OP-PT Balance Assessment Standing Balance Standing Balance Comments SLS right 12 sec, left 7 sec Dye Fall Scale Copyright Permission PT-OP-F Manual Assessment Start: 06/07/22 17:37 Freq: Status: Active Protocol: Document 06/08/22 15:19 SAK (Rec: 06/08/22 17:17 [facility] [id number]) Manual Assessments Soft Tissue Assessment Soft Tissue Mobility Assessment tightness bilateral lumbar spine PT-OP-G Mobility & Gait Start: 06/07/22 17:37 Freq: Status: Active Protocol: Document 06/08/22 15:19 SAK (Rec: 06/08/22 17:17 [facility] [id number]) OP Gait Assessment Gait Gait Assistance Required: Independent Assistive Devices Assistive Device None PT-OP-H Neuro Start: 06/07/22 17:37 Freq: Status: Active Protocol: Document 06/08/22 15:19 SAK (Rec: 06/08/22 17:17 [facility] [id number]) Sensation Evaluation Gross Sensation Gross Sensation Left LE Impaired Sensation Description Paresthesia PT-OP-J Posture/Palpation/Skin Start: 06/07/22 17:37 Freq: Status: Active Protocol: Document 06/08/22 15:19 [facility] (Rec: 06/08/22 17:17 [facility] [id number]) Posture Evaluation Position Standing Head/C-Spine Posture Forward Head T-Spine Posture Increased Kyphosis L-Spine Posture Flattened Scapula Posture (L) Protracted,(R) Protracted Arm Posture (L) Internally Rotated,(R) Internally Rotated Pelvis Posture Posterior Tilted Palpation Assessment Location tomas paraspinals Palpation Findings Soft Tissue Tightness,Muscle Guarding PT-OP-K Range of Motion Start: 06/07/22 17:37 Freq: Status: Active Protocol: Document 06/08/22 15:19 [facility] (Rec: 06/08/22 17:17 [facility] [id number]) Lumbar Spine Range of Motion Lumbar Spine Active Testing Position Standing Flexion 40 Extension 20 Rotation Left 35 Rotation Right 35 Lateral Flexion Left 30 Lateral Flexion Right 30 ROM Limitations Soft Tissue Tightness,Pain Comments with flexion pain and tightness left posterior thigh Hip Goniometric Range of Motion Hip ROM Limitations Hip ROM Limitations Soft Tissue Tightness Comments mod tightness left hip flexors , tomas hamstrings PT-OP-M Strength Start: 06/07/22 17:37 Freq: Status: Active Protocol: Document 06/08/22 15:19 [facility] (Rec: 06/08/22 17:17 [facility] [id number]) Trunk Strength Trunk Manual Muscle Testing Flexion 4 Good Extension 4 Good Core Stabilization decreased with seated march noted moderate trunk compensation Hip Strength Hip Manual Muscle Testing Left Flexion (L2) 4 Good Right Flexion (L2) 5 Normal Knee Strength Knee Manual Muscle Testing Left Flexion (S2) 4 Good Extension (L3) 4 Good Right Flexion (S2) 5 Normal Extension (L3) 5 Normal Ankle/Foot Strength Ankle and Foot Manual Muscle Testing Left Dorsiflexion (L4) 4+ Good+ Right Dorsiflexion (L4) 5 Normal Plantarflexion (S1) 5 Normal Toe Strength Toe Manual Muscle Testing Left Great Toe Extension 4 Good Right Great Toe Extension 5 Normal PT-OP-T Assessment and Plan Start: 06/07/22 17:37 Freq: Status: Active Protocol: Document 10/23/22 15:54 SAK (Rec: 10/23/22 15:55 [facility] [id number]) Physical Therapy Plan Discharge Physical Therapy Discharge Reasons No Longer Attending PT
== END 2022-10-25 11:17 | disposition home or self-care (01) ==
LOC: PHYS 10:30
PROVIDERS: Family Provider Family Medicine; PCP Family Medicine; Referring Provider Family Medicine; Visit Provider Family Medicine
DX: M54.42 Lumbago with sciatica, left side (principal); M25.511 Pain in right shoulder; M25.512 Pain in left shoulder; M54.6 Pain in thoracic spine; M99.06 Segmental and somatic dysfunction of lower extremity; M99.09 Segmental and somatic dysfunction of abdomen and other regions; M99.05 Segmental and somatic dysfunction of pelvic region; M99.04 Segmental and somatic dysfunction of sacral region; M99.03 Segmental and somatic dysfunction of lumbar region; G89.29 Other chronic pain; R53.1 Weakness; R29.3 Abnormal posture
CPT/HCPCS: 97110; 97140; 97162; 97535

== ENCOUNTER → 2022-09-07 16:47 | Outpatient (CLI) | payer OTHER, MEDICAID, SELFPAY ==
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
== END ==
PROVIDERS: Family Provider Family Medicine; PCP Family Medicine; Referring Provider Nurse Practitioner Family; Visit Provider Nurse Practitioner Family
DX: R07.81 Pleurodynia (principal); M54.6 Pain in thoracic spine
CPT/HCPCS: 71101; 72072

== ENCOUNTER → 2022-09-28 15:37 | Outpatient (CLI) | payer OTHER, MEDICAID, SELFPAY ==
--- NOTE | 2022-09-28 15:38 | DI.RAD.S_ITS ---
PROCEDURE: XR WRIST LT MIN 3V INDICATIONS: wrist pain TECHNIQUE: 4 views of the wrist were acquired. COMPARISON: None. FINDINGS: Bones: No fractures or dislocations. No suspicious bony lesions. Scaphoid view: Scaphoid is intact. Soft tissues: No suspicious soft tissue calcifications. IMPRESSION: Unremarkable radiographic examination of left wrist. If indicated, MRI of wrist can be done for evaluation of internal derangement. Dictated by: Kody Tsai M.D. on 09/28/2022 at 17:10 Approved by: Kody Tsai M.D. on 09/28/2022 at 17:23
[2022-10-03 10:31] LABS: Percent Free Testosterone 3.53 % (1.50-4.20); Testosterone Free 11.59 ng/dL (5.00-21.00); Testosterone Total 328.2 ng/dL (264.0-916.0)
== END ==
PROVIDERS: Family Provider Family Medicine; PCP Family Medicine; Referring Provider Family Medicine; Visit Provider Family Medicine
DX: M25.532 Pain in left wrist (principal); N52.9 Male erectile dysfunction, unspecified; R63.5 Abnormal weight gain
CPT/HCPCS: 36415; 73110; 84402; 84403

== ENCOUNTER → 2022-10-16 14:43 | Outpatient (CLI) | payer OTHER, MEDICAID, SELFPAY ==
[2022-10-16 16:43] LABS: Follicle Stimulating Hormone 3.08 mIU/mL; Luteinizing Hormone 2.82 mIU/mL
[2022-10-20 18:31] LABS: Percent Free Testosterone 3.15 % (1.50-4.20); Testosterone Free 8.37 ng/dL (5.00-21.00); Testosterone Total 265.8 ng/dL (264.0-916.0)
== END ==
PROVIDERS: Family Provider Family Medicine; PCP Family Medicine; Referring Provider Family Medicine; Visit Provider Family Medicine
DX: E29.9 Testicular dysfunction, unspecified (principal); R79.89 Other specified abnormal findings of blood chemistry
CPT/HCPCS: 36415; 83001; 83002; 84402; 84403

== ENCOUNTER → 2023-02-08 13:37 | Outpatient (CLI) | payer OTHER, MEDICAID, SELFPAY ==
[2023-02-16 11:24] LABS: Percent Free Testosterone 2.31 % (1.50-4.20); Testosterone Total 1069.3 ng/dL (264.0-916.0)
== END ==
PROVIDERS: Family Provider Family Medicine; PCP Family Medicine; Referring Provider Family Medicine; Visit Provider Family Medicine
DX: R79.89 Other specified abnormal findings of blood chemistry (principal)
CPT/HCPCS: 36415; 84402; 84403

== ENCOUNTER → 2023-04-04 10:25 | Outpatient (CLI) | payer OTHER, MEDICAID, SELFPAY ==
[2023-04-04 11:02] LABS: Add Manual Diff / Slide Review NO; Basophils Absolute Auto 0 /uL (0-100); Basophils Percent Auto 0.2 % (0-2); Eosinophils Absolute Auto 100 /uL (0-450); Eosinophils Percent Auto 0.7 % (2-4); Hematocrit 45.3 % (41-53); Hemoglobin 15.3 g/dL (13.5-17.5); Lymphocytes Absolute Auto 1500 /uL (1100-4500); Lymphocytes Percent Auto 14.9 % (25-40); Mean Corpuscular HGB Conc 33.8 % (30-36); Mean Corpuscular Hemoglobin 30.1 PG (26-34); Mean Corpuscular Volume 88.9 fL (80-100); Monocytes Absolute Auto 600 /uL (0-900); Monocytes Percent Auto 6.1 % (3-14); Neutrophils Absolute Auto 8100 /uL (1500-7000); Neutrophils Percent Auto 78.1 % (50-75); Platelet Count 310 X10^3/uL (150-400); Red Cell Distribution Width 13.6 % (11.6-14.8); White Blood Cell Count 10.4 X10^3/uL (4.5-11.0)
[2023-04-04 11:10] LABS: Hemoglobin A1C% w Est Avg Glu 5.3 % (4.0-6.0)
[2023-04-04 11:22] LABS: Alanine Aminotransferase 53 IU/L (<50); Albumin 4.7 g/dL (3.5-5.0); Albumin Globulin Ratio 1.1 (1.0-2.8); Alkaline Phosphatase 64 U/L (38-126); Aspartate Aminotransferase 39 IU/L (17-59); BUN Creatinine Ratio 29.9 (6-22); Bilirubin Total 0.8 mg/dL (0.2-1.3); Blood Urea Nitrogen 29 mg/dL (9-20); Calcium 9.8 mg/dL (8.4-10.2); Carbon Dioxide 27 mmol/L (22-32); Chloride 102 mmol/L (98-107); Cholesterol 163 mg/dL (140-199); Estimated Glomerular Filt Rate > 60 mL/min (>60); Globulin 4.1 g/dL (1.7-4.1); Glucose 81 mg/dL (70-100); HDL Cholesterol 29 mg/dL (40-60); HEMOLYSIS 16 (0-50); LDL Cholesterol Calculated 97 mg/dL (<100); Potassium 3.7 mmol/L (3.4-5.1); Sodium 140 mmol/L (137-145); Total Protein 8.8 g/dL (6.3-8.2); Triglycerides 185 mg/dL (35-150)
[2023-04-04 11:55] LABS: TSH w/ Reflex to FT4 1.85 uIU/mL (0.47-4.68)
== END ==
PROVIDERS: Family Provider Family Medicine; PCP Family Medicine; Referring Provider Family Medicine; Visit Provider Family Medicine
DX: R63.5 Abnormal weight gain (principal); R79.89 Other specified abnormal findings of blood chemistry; R74.8 Abnormal levels of other serum enzymes; I10 Essential (primary) hypertension; E66.9 Obesity, unspecified; R73.9 Hyperglycemia, unspecified
CPT/HCPCS: 36415; 80053; 80061; 83036; 84443; 85025

== ENCOUNTER → 2023-05-09 13:48 | Outpatient (CLI) | payer OTHER, MEDICAID, SELFPAY ==
[2023-05-09 16:48] LABS: Follicle Stimulating Hormone < 0.66 mIU/mL; Luteinizing Hormone < 0.216 mIU/mL
[2023-05-10 01:22] LABS: TSH w/ Reflex to FT4 1.76 uIU/mL (0.47-4.68)
[2023-05-12 11:08] LABS: Adrenocorticotropic Hormone 16.2 pg/mL (7.2-63.3)
[2023-05-15 22:46] LABS: Growth Hormone < 0.1 ng/mL (0.0-10.0)
[2023-05-18 15:12] LABS: Percent Free Testosterone 3.37 % (1.50-4.20); Testosterone Free 9.14 ng/dL (5.00-21.00); Testosterone Total 271.1 ng/dL (264.0-916.0)
== END ==
PROVIDERS: Family Provider Family Medicine; PCP Family Medicine; Referring Provider Family Medicine; Visit Provider Family Medicine
DX: R79.89 Other specified abnormal findings of blood chemistry (principal); R41.89 Other symptoms and signs involving cognitive functions and awareness; R63.5 Abnormal weight gain; N52.9 Male erectile dysfunction, unspecified
CPT/HCPCS: 36415; 82024; 83001; 83002; 84402; 84403; 84443; 86277

== ENCOUNTER → 2023-07-06 13:25 | Outpatient (CLI) | payer OTHER, MEDICAID, SELFPAY ==
[2023-07-06 20:00] LABS: Occult Blood 1 Negative (Negative); Occult Blood 2 Negative (Negative); Occult Blood 3 Negative (Negative)
[2023-07-06 20:45] LABS: Clostridium Difficile Tox PCR Negative for C. diff (Negative)
== END ==
PROVIDERS: Family Provider Family Medicine; PCP Family Medicine; Referring Provider Nurse Practitioner Family; Visit Provider Nurse Practitioner Family
DX: R19.7 Diarrhea, unspecified (principal)
CPT/HCPCS: 82270; 87177; 87329; 87493

== ENCOUNTER → 2023-12-28 09:24 | Outpatient (CLI) | payer OTHER, MEDICAID, SELFPAY ==
[2024-01-05 14:12] LABS: Percent Free Testosterone 3.22 % (1.50-4.20); Testosterone Free 30.21 ng/dL (5.00-21.00); Testosterone Total 938.1 ng/dL (264.0-916.0)
== END ==
PROVIDERS: Family Provider Family Medicine; PCP Family Medicine; Referring Provider Family Medicine; Visit Provider Family Medicine
DX: R79.89 Other specified abnormal findings of blood chemistry (principal)
CPT/HCPCS: 36415; 84402; 84403

== ENCOUNTER → 2025-01-06 11:39 | Outpatient (CLI) | payer OTHER, SELFPAY ==
[2025-01-06 13:41] LABS: Cholesterol 182 mg/dL (140-199); HDL Cholesterol 35 mg/dL (40-60); Triglycerides 129 mg/dL (35-150)
[2025-01-06 13:59] LABS: Vitamin D 25 Hydroxy (D3) 70.5 ng/mL (30.0-100.0)
[2025-01-06 14:17] LABS: Estradiol, Total 63.7 pg/mL
[2025-01-06 14:36] LABS: Vitamin B12 593 pg/mL (239-931)
[2025-01-14 11:11] LABS: Percent Free Testosterone 3.99 % (1.50-4.20)
== END ==
PROVIDERS: PCP Family Medicine; Referring Provider Family Medicine; Visit Provider Family Medicine
DX: R79.89 Other specified abnormal findings of blood chemistry (principal)
CPT/HCPCS: 36415; 80061; 82306; 82607; 82670; 84402; 84403

== ENCOUNTER → 2025-03-13 09:44 | Outpatient (CLI) | payer OTHER, SELFPAY ==
[2025-03-13 10:26] LABS: Add Manual Diff / Slide Review NO; Hematocrit 47.9 % (41-53); Hemoglobin 16.7 g/dL (13.5-17.5); Lymphocytes Absolute Auto 1500 /uL (1100-4500); Mean Corpuscular HGB Conc 34.8 % (30-36); Mean Corpuscular Hemoglobin 30.9 PG (26-34); Mean Corpuscular Volume 88.9 fL (80-100); Platelet Count 306 X10^3/uL (150-400)
[2025-03-13 10:59] LABS: Alanine Aminotransferase 69 IU/L (<50); Albumin 5.2 g/dL (3.5-5.0); Albumin Globulin Ratio 1.5 (1.0-2.8); Alkaline Phosphatase 55 U/L (38-126); Blood Urea Nitrogen 18 mg/dL (9-20); Calcium 10.0 mg/dL (8.4-10.2); Carbon Dioxide 27 mmol/L (22-32); Chloride 102 mmol/L (98-107); Cholesterol 179 mg/dL (140-199); Estimated Glomerular Filt Rate > 60 mL/min (>60); Globulin 3.5 g/dL (1.7-4.1); Glucose 101 mg/dL (70-99); HDL Cholesterol 41 mg/dL (40-60); HEMOLYSIS < 15 (0-50); Potassium 4.4 mmol/L (3.4-5.1); Sodium 142 mmol/L (137-145); Total Protein 8.7 g/dL (6.3-8.2); Triglycerides 134 mg/dL (35-150)
[2025-03-13 11:16] LABS: Vitamin D 25 Hydroxy (D3) 73.4 ng/mL (30.0-100.0)
== END ==
PROVIDERS: PCP Family Medicine; Referring Provider Family Medicine; Visit Provider Family Medicine
DX: Z13.220 Encounter for screening for lipoid disorders (principal); R53.83 Other fatigue; E55.9 Vitamin D deficiency, unspecified; R79.89 Other specified abnormal findings of blood chemistry
CPT/HCPCS: 36415; 80053; 80061; 82306; 84402; 84403; 85025